=== PATIENT | male | born 1955 | race Caucasian/White ===

== ENCOUNTER → 2020-06-26 11:57 | Outpatient (BNVA) | payer OTHER, SELFPAY | PROVIDERS: Family Provider Family Medicine; Visit Provider Internal Medicine | DX: Z11.59 Encounter for screening for other viral diseases (principal) | CPT/HCPCS: 87635 ==

== ENCOUNTER 2020-08-02 20:00 | Outpatient (CLI) | payer OTHER, SELFPAY | END 2020-08-02 20:01 | disposition home or self-care (01) | LOC: SLEEP 08-03 09:48 | PROVIDERS: Family Provider Family Medicine; PCP Family Medicine; Visit Provider Internal Medicine Cardiovascular Disease | DX: G47.33 Obstructive sleep apnea (adult) (pediatric) (principal) | CPT/HCPCS: 95811 ==

== ENCOUNTER 2020-09-27 06:57 | Outpatient (CLI) | payer OTHER, SELFPAY ==
[2020-09-27 07:05] VITALS: BMI 29.1
--- NOTE | 2020-09-27 07:05 | NMCV_ITS ---
NM marta perf SPECT r/s* [id number] John Fleming Age: 65 Gender: M : 1955 Exam Date: 09/27/2020 07:53 Ordering Phys: Black Durham MD ([email or web address]) Technologist: JUAN PABLO Esposito Exam Location: [facility] Indications: Chest pain STRESS TEST Please see separate stress test report in [facility] for full findings IMAGE PROTOCOL Rest/Stress 1 Exercise Day Radiopharmaceutical Dose (mCi) Administration Site Administered by Rest: Tc-99m 10.9 IV JUAN PABLO Esposito Sestamibi Stress:Tc-99m 32.7 IV JUAN PABLO Knapp Sestamimike Rest: 27-Sep-2020 60 Discovery 630 Stress: 27-Sep-2020 15 Discovery 630 Radiopharmaceutical was injected at 87 % maximum heart rate. Images obtained in supine and prone position. SPECT RESULTS Technical Quality: Good Raw Data Analysis: Normal Image Corrections: No attenuation or motion correction applied Summed Stress Score: 0 Summed Rest Score: 0 Summed Difference Score: 0 PERFUSION FINDINGS SPECT images demonstrate homogeneous tracer distribution throughout the myocardium. FUNCTIONAL RESULTS (calculated via Gated SPECT) Stress Image LV EF (%): 66 Stress EDV (mL):128 TID: 0.84 Stress ESV (mL):44 Rest Image LV EF (%): 66 FUNCTIONAL FINDINGS: There is normal left ventricular systolic function. IMPRESSIONS Myocardial perfusion imaging is normal. EKG segment will be documented separately. Black Durham MD (Electronically Signed) Final Date: 27 September 2020 16:39 S
--- NOTE | 2020-09-27 07:05 | ECG_ITS ---
[facility] Test Date: 2020-09-27 Pat Name: John Fleming Department: Room: Gender: Male Senior Brand Manager: : 1955 Requested By: Yuliana Durham Order Number: [id number] Verónica MD: YULIANA DURHAM Interpretive Statements NAME OF STUDY: EXERCISE SESTAMIBI STRESS TEST INDICATION: Chest Pain EXERCISE DATA: The patient was exercised by Gregory protocol. Baseline heart rate was 48 beats per minute. Baseline blood pressure was 131/83 millimeters of mercury. Target heart rate was 156 beats per minute. Maximum heart rate achieved was 144, which was 92 % of the target heart rate. Maximum blood pressure was 218/94 millimeters of mercury. Total exercise time was 7 minutes 30 seconds. Maximum METs achieved was 10.2, maximum VO2 was 35.7. The reason for ending the test was maximum effort achieved. The patient complained of shortness of breath during the stress test, which then resolved at the end of the test. ELECTROCARDIOGRAM: BASELINE: Sinus bradycardia, normal axis, no significant ST-T changes at the baseline noted. EXERCISE: At the peak exercise level, no significant ST-T changes suggestive of ischemia noted. RECOVERY: During the recovery period, heart rate dropped appropriately. No significant ST-T changes in the recovery suggestive of ischemia noted. CONCLUSION: 1. Exercise capacity good. 2. Heart rate response was appropriate. 3. Blood pressure response was hypertensive. 4. Symptoms not suggestive of ischemia. 5. Electrocardiogram portion of the stress test was not suggestive of ischemia. 6. Nuclear scan will be documented separately. Electronically Signed On 10-09-2020 18:06:55 COMMODITY LEAD by YULIANA DURHAM [id number]
--- NOTE | 2020-09-27 08:41 | SUR.PREOP ---
Patient reports no pain or discomfort prior to the start of the procedure.
[2020-09-27 09:10] VITALS: BP 134/78; PULSE 72
== END 2020-09-27 06:58 | disposition home or self-care (01) ==
LOC: CDL 06:58
PROVIDERS: PCP Family Medicine; Visit Provider Internal Medicine Cardiovascular Disease
DX: R07.9 Chest pain, unspecified (principal)
CPT/HCPCS: 78452; 93017; A9500

== ENCOUNTER → 2021-04-11 08:17 | Outpatient (BNVA) | payer OTHER, SELFPAY | PROVIDERS: PCP Family Medicine; Visit Provider Internal Medicine | DX: Z12.11 Encounter for screening for malignant neoplasm of colon (principal); Z20.822 Contact with and (suspected) exposure to COVID-19 | CPT/HCPCS: 87635 ==

== ENCOUNTER 2021-04-15 09:27 | Day surgery (SDC) | payer OTHER, SELFPAY ==
[2021-04-11 14:18] VITALS: BMI 28.5
--- NOTE | 2021-04-15 09:13 | P.HP_ITS ---
Same Day Surgery H&P Indication for Procedure/HPI DATE OF PROCEDURE: April 15, 2021 CHIEF COMPLAINT/INDICATIONFOR SURGICAL PROCEDURE: Screening PREOP DIAGNOSIS: Screening PLANNED PROCEDRUE: Operation Date: 04/15/21 11:00 Proposed Procedures p Colonoscopy G0121 Z12.11(Not Applicable) - Harinder Bragg MD Medications/Allergies* Home Medications Medication Instructions Recorded Confirmed Type esomeprazole magnesium 40 mg 40 mg PO DAILY cap 07/12/20 04/11/21 History capsule,delayed release lisinopril 20 mg PO DAILY 04/11/21 04/11/21 History Allergies/Adverse Reactions Allergy/AdvReac Type Severity Reaction Status Date / Time codeine AdvReac ADR-Vomitin Verified 01/17/21 13:06 g Pertinent History/Comorbid Conditions* Medical History (Updated 07/15/20 @ 15:43 by Black Durham MD) Bradycardia Essential hypertension Fatigue Hyperlipidemia LDL goal <100 LUCY (obstructive sleep apnea) Social History Smoking and tobacco status: never smoked Alcohol intake: current Alcohol intake frequency: other Pertinent Exam Findings alert, oriented x 3, clear to auscultation bilaterally, regular rate & rhythm, operative site marked and procedure specific exam findings Recommendations Surgery/Procedure today Coding Level of Care Code Acute Automation Technician for Jesús Nicolas
--- NOTE | 2021-04-15 09:47 | ANES.PREANE2 ---
Pre-Anesthetic Assessment Pre-Anesthetic Assessment: Height/Weight: Height 1.88 m Weight 100.698 kg Preop Diagnosis: Screening Proposed Procedure: Operation Date: 04/15/21 11:00 Proposed Procedures p Colonoscopy G0121 Z12.11(Not Applicable) - Harinder Bragg MD Was Beta Samantha taken within 24 hours: N/A Was Clonidine taken within 24 hours: N/A Social: Social History: No alcohol and No tobacco Exam: Pre-Anes Outpt Exam: alert, oriented x 3, clear to auscultation bilaterally and regular rate & rhythm Airway: Submandibular: WNL Cervical ROM: WNL MP: 2 Dentition: Full Pulmonary: Pulmonary: Sleep apnea CV/HEM: CV/HEM: HTN GI: GI: GERD Neuropsych: Neuropsych: Anxiety Anesthetic Plan: ASA status: 3 Anesthesia: MAC Risk of > 500 ml blood loss (7ml/kg in children): No PFSH Anesthesia PFSH: Medical History Bradycardia Essential hypertension Fatigue Hyperlipidemia LDL goal <100 LUCY (obstructive sleep apnea) Social History (Updated 01/17/21 @ 13:07 by Flor Whitten RN) Smoking and tobacco status: never smoked Alcohol intake: current Alcohol intake frequency: other Data Anesthesia Cardiac Studies: No Data to Display
[2021-04-15 11:08] VITALS: BP 135/90; PULSE 47; RESP 18; TEMP 36.4; O2SAT 99
[2021-04-15] MEDS: sodium chloride 0.9% 1,000 ML 30 ML IV ×2 (11:21→12:31)
[2021-04-15 12:38] VITALS: BP 110/64; PULSE 54; RESP 12; TEMP 36.4; O2SAT 98
[2021-04-15 12:48] VITALS: BP 109/64; PULSE 45; RESP 16; O2SAT 99
--- NOTE | 2021-04-15 13:15 | ANE.PACU2 ---
Inpatient post-anesthesia follow up: Airway intact: Yes Vital signs: Temperature 97.6 F Pulse Rate 45 Respiratory Rate 16 Blood Pressure 109/64 Pulse Oximetry 99 Oxygen Delivery Me thod Room Air Oxygen Flow Rate Fraction of Inspir ed Oxygen Hydration adequate: Yes Nausea and vomiting: No Pain level: 1 Mental status: Baseline
== END 2021-04-15 13:00 | disposition home or self-care (01) ==
PROVIDERS: PCP Family Medicine; Visit Provider Internal Medicine
PROC: 0DJD8ZZ Inspection of Lower Intestinal Tract, Via Natural or Artificial Opening Endoscopic (ICD-10-PCS; CPT 45378; principal; 2021-04-15 11:00)
DX: Z12.11 Encounter for screening for malignant neoplasm of colon (principal); I10 Essential (primary) hypertension; E78.5 Hyperlipidemia, unspecified; G47.33 Obstructive sleep apnea (adult) (pediatric); K21.9 Gastro-esophageal reflux disease without esophagitis
CPT/HCPCS: 45378; 96360; J2704; J7030

== ENCOUNTER → 2021-06-25 07:55 | Outpatient (BNVA) | payer OTHER, SELFPAY | PROVIDERS: PCP Family Medicine; Visit Provider Specialist | DX: F32.9 Major depressive disorder, single episode, unspecified (principal); G25.0 Essential tremor | CPT/HCPCS: 99214 ==

== ENCOUNTER → 2021-09-24 08:06 | Outpatient (BNVA) | payer OTHER, SELFPAY | PROVIDERS: PCP Family Medicine; Visit Provider Specialist | DX: G25.0 Essential tremor (principal); F32.9 Major depressive disorder, single episode, unspecified | CPT/HCPCS: 99212; 99213 ==

== ENCOUNTER → 2022-01-10 10:39 | Outpatient (BNVA) | payer OTHER, SELFPAY | PROVIDERS: PCP Family Medicine; Visit Provider Family Medicine | DX: Z20.822 Contact with and (suspected) exposure to COVID-19 (principal) | CPT/HCPCS: 87635 ==

== ENCOUNTER → 2022-02-12 10:33 | Outpatient (BNVA) | payer OTHER, SELFPAY | PROVIDERS: PCP Family Medicine; Visit Provider Internal Medicine | DX: Z20.822 Contact with and (suspected) exposure to COVID-19 (principal); Z01.818 Encounter for other preprocedural examination; R10.13 Epigastric pain | CPT/HCPCS: 87635 ==

== ENCOUNTER 2022-02-17 06:11 | Day surgery (SDC) | payer OTHER, SELFPAY ==
[2022-02-14 10:05] VITALS: BMI 27.3
[2022-02-17 06:27] VITALS: BP 132/80; PULSE 50; RESP 16; TEMP 36.1; O2SAT 98
--- NOTE | 2022-02-17 06:34 | P.ANESASSM_ITS ---
Pre-Anesthetic Assessment Height/Weight: Height 1.88 m Weight 96.615 kg Temp Pulse Resp BP Pulse Ox 97 F L 50 L 16 132/80 98 02/17/22 06:27 02/17/22 06:27 02/17/22 06:27 02/17/22 06:27 02/17/22 06:27 Preop Diagnosis: Epigastric pain Operation Date: 02/17/22 07:00 Proposed Procedures p EGD 55803/r10.13(Not Applicable) - Harinder Bragg MD Familial anesthetic complications: None Was Beta Samantha taken within 24 hours: N/A Was Clonidine taken within 24 hours: N/A Last intake: Intake Last Liquid Date 02/17/22 Last Liquid Time 03:00 Last Solid Date 02/16/22 Last Solid Time 20:00 Social No alcohol and No tobacco Exam alert, oriented x 3, clear to auscultation bilaterally and regular rate & rhythm Airway Mallampati: Class I Dentition: false Pulmonary Sleep Apnea CV/HEM Arrythmia and Hypertension None reported Hepatic None reported GI Gastroesophageal Reflux Disease and Hiatal Hernia (small) well controlled GERD Metabolic Hyperlipidemia [facility] Osteoarthritis/DJD Neuropsych None reported Anesthetic Plan ASA status: 3 Anesthesia: MAC Medications/Allergies Home Medications Medication Instructions Recorded Confirmed Last Taken Type esomeprazole magnesium 40 mg 40 mg PO DAILY cap 07/12/20 02/17/22 02/16/22 History capsule,delayed release lisinopril 20 mg tablet 20 mg PO DAILY 04/11/21 02/17/22 02/16/22 History citalopram 20 mg tablet 20 mg PO DAILY #30 tab 09/24/21 02/17/22 02/16/22 Rx trazodone 100 mg tablet 100 mg PO DAILY #30 tab 09/24/21 02/17/22 02/16/22 Rx alprazolam 0.25 mg tablet (Xanax) 0.25 mg PO .[id number] PRN #120 tab 01/28/22 02/17/22 02/16/22 Rx atorvastatin 10 mg tablet 10 mg PO DAILY 02/12/22 02/17/22 02/16/22 History Allergies Allergy/AdvReac Type Severity Reaction Status Date / Time codeine AdvReac ADR-Vomitin Verified 02/12/22 09:49 g [facility] Anesthesia Medical History Bradycardia Essential hypertension Fatigue Hyperlipidemia LDL goal <100 LUCY (obstructive sleep apnea) Social History Smoking and tobacco status: never smoked Alcohol intake: current Alcohol intake frequency: other Data Anesthesia Cardiac Studies: Sestamibi Stress Test (Cardiology) 09/27/20
[2022-02-17] MEDS: sodium chloride 0.9% 1,000 ML 30 ML IV (06:36)
--- NOTE | 2022-02-17 07:32 | W.PM.OPSFHP ---
Same Day Surgery H&P Indication for Procedure/HPI DATE OF PROCEDURE: February 17, 2022 CHIEF COMPLAINT/INDICATIONFOR SURGICAL PROCEDURE: Epigastric pain PREOP DIAGNOSIS: Epigastric pain PLANNED PROCEDURE: Operation Date: 02/17/22 07:00 Proposed Procedures p EGD 17119/r10.13(Not Applicable) - Harinder Bragg MD Medications/Allergies* Home Medications Medication Instructions Recorded Confirmed Type esomeprazole magnesium 40 mg 40 mg PO DAILY cap 07/12/20 02/17/22 History capsule,delayed release lisinopril 20 mg tablet 20 mg PO DAILY 04/11/21 02/17/22 History atorvastatin 10 mg tablet 10 mg PO DAILY 02/12/22 02/17/22 History Allergies/Adverse Reactions Allergy/AdvReac Type Severity Reaction Status Date / Time codeine AdvReac ADR-Vomitin Verified 02/12/22 09:49 g Current Medications: Generic Name Dose Route Start Last Admin Trade Name Freq PRN Reason Stop Dose Admin Sodium Chloride 1,000 mls @ 30 mls/hr 02/17/22 06:15 02/17/22 06:36 Sodium Chloride 0.9% IV 30 mls/hr .Q24H DON Administration Pertinent History/Comorbid Conditions* Medical History (Updated 02/12/22 @ 10:26 by Harinder Bragg MD) Bradycardia Essential hypertension Fatigue Hyperlipidemia LDL goal <100 LUCY (obstructive sleep apnea) Social History Smoking and tobacco status: never smoked Alcohol intake: current Alcohol intake frequency: other Pertinent Exam Findings alert, oriented x 3, clear to auscultation bilaterally, regular rate & rhythm, operative site marked and procedure specific exam findings Recommendations Surgery/Procedure today Coding Level of Care Code Acute Senior Java Programmer Analyst for Jesús Nicolas
[2022-02-17 07:41] VITALS: BP 114/71; PULSE 48; RESP 16; TEMP 36.6; O2SAT 95
[2022-02-17 07:49] VITALS: BP 120/84; PULSE 50; RESP 18; TEMP 36.5; O2SAT 97
--- NOTE | 2022-02-17 09:25 | CT_ITS ---
WS: [id number] CT ABDOMEN AND PELVIS WITH CONTRAST HISTORY: Epigastric pain with a bland egd. TECHNIQUE: Imaging performed of the abdomen and pelvis with IV contrast. Single phase imaging of the abdomen. Coronal and sagittal reformats are submitted. All CT scans at [facility] use at [address] one of these dose optimization techniques: automated exposure control; mA and/or kV adjustment per patient size (includes targeted exams where dose is matched to clinical indication); or iterative re construction. IV CONTRAST: Omnipaque 300; 95 mL IV. Oral contrast: Yes. DLP: 1222.83 mGy.cm COMPARISON: None available. Lower thorax: Mild dependent changes and groundglass attenuation the lung bases. Heart is normal size . Small hiatal hernia. Liver/biliary system: Normal size with no intrahepatic dilatation. Gallbladder: Status post cholecystectomy. Pancreas: Normal size pancreas and pancreatic duct. No adjacent inflammation. Spleen: Normal size spleen. No mass or infarct. Adrenal glands: Normal. Right kidney: Normal. Left kidney: Normal. Aorta: Normal. Lymphadenopathy: None. Free fluid: None. GI tract: Minimal distention of the stomach. No mucosal thickening or edema. No small bowel obstructi on. There are a few diverticula in the sigmoid colon without acute diverticulitis. Very small caliber are normal. Abdominal wall: Unremarkable abdominal wall. No hernia. Pelvis: Well-distended urinary bladder. Mildly enlarged heterogeneous prostate gland with central beto cifications. Bones: Mild lumbar spondylitic changes. No destructive bone lesion. Mild bilateral hip joint arthriti s. CT/CT abdomen pelvis w con* [id number] IMPRESSION: 1. No acute abdominal or pelvic abnormalities. 2. Mild sigmoid diverticulosis without acute diverticulitis. 3. Prior cholecystectomy. 4. Very small hiatal hernia. 5. Mildly heterogeneous prostate gland.
[2022-02-17 09:30] LABS: Alanine Aminotransferase 16 U/L (0-41); Albumin Level 4.7 g/dL (3.5-5.2); Alkaline Phosphatase 63 IU/L (40-130); Anion Gap 11.3 (5-19); Aspartate Amino Transferase 13 U/L (0-40); Blood Urea Nitrogen 11 mg/dL (8-23); Carbon Dioxide 28 mmol/L (22-29); Chloride 97 mmol/L (98-107); Glomerular Filtration Rate 135.2 mL/min (90-130); Glucose 146 mg/dL (65-115); Osmolality Calculated 276 mOsm/kg (285-295); Potassium 4.3 mmol/L (3.5-5.1); Sodium 132 mmol/L (136-145); Total Bilirubin 1.7 mg/dL (0.15-1.2); Total Protein 6.7 g/dL (6.6-8.7)
[2022-02-17] MEDS: iohexol 300 mg/mL 50 mL Btl 20 ML PO (09:37)
[2022-02-17] MEDS: iohexol 300 mg/mL 100 mL Btl IV (10:51)
--- NOTE | 2022-02-17 14:52 | ANE.PACU2 ---
Inpatient post-anesthesia follow up: Airway intact: Yes Vital signs: Temperature 97.7 F Pulse Rate 50 Respiratory Rate 18 Blood Pressure 120/84 Pulse Oximetry 97 Oxygen Delivery Me thod Room Air Oxygen Flow Rate Fraction of Inspir ed Oxygen Hydration adequate: Yes Nausea and vomiting: No Pain level: 1 Mental status: Baseline
== END 2022-02-17 10:53 | disposition home or self-care (01) ==
PROVIDERS: PCP Family Medicine; Visit Provider Internal Medicine
PROC: 0DJ08ZZ Inspection of Upper Intestinal Tract, Via Natural or Artificial Opening Endoscopic (ICD-10-PCS; CPT 43235; principal; 2022-02-17 07:00)
DX: R10.13 Epigastric pain (principal); I10 Essential (primary) hypertension; E78.5 Hyperlipidemia, unspecified; G47.33 Obstructive sleep apnea (adult) (pediatric)
CPT/HCPCS: 36415; 43235; 74177; 80053; J2704; J3490; J7030; Q9967

== ENCOUNTER → 2022-03-20 10:38 | Outpatient (BNVA) | payer OTHER, SELFPAY | PROVIDERS: PCP Family Medicine; Visit Provider Family Medicine | DX: R10.13 Epigastric pain (principal); R53.83 Other fatigue; R19.7 Diarrhea, unspecified; M25.50 Pain in unspecified joint | CPT/HCPCS: 80053; 83690; 84443; 85025; 86200; 86431 ==

== ENCOUNTER → 2022-03-27 15:51 | Outpatient (BNVA) | payer OTHER, SELFPAY | PROVIDERS: PCP Family Medicine; Visit Provider Family Medicine | DX: E80.6 Other disorders of bilirubin metabolism (principal) | CPT/HCPCS: 82247; 82248 ==

== ENCOUNTER → 2022-10-14 10:47 | Outpatient (BNVA) | payer MEDICARE, SELFPAY | PROVIDERS: PCP Family Medicine; Visit Provider Family Medicine | DX: I10 Essential (primary) hypertension (principal); E80.6 Other disorders of bilirubin metabolism; E78.5 Hyperlipidemia, unspecified; R73.9 Hyperglycemia, unspecified | CPT/HCPCS: 80053; 80061; 83036 ==

== ENCOUNTER 2022-11-29 16:03 | Emergency (ER) | payer MEDICARE, SELFPAY ==
[2022-11-29 16:26] VITALS: BP 145/85; PULSE 87; RESP 18; TEMP 38.1; O2SAT 94
--- NOTE | 2022-11-29 16:36 | XRR_ITS ---
PROCEDURE INFORMATION: Exam: XR Left Foot Exam date and time: 11/29/2022 4:42 PM Age: 67 years old Clinical indication: Patient HX: Pain/swelling left foot, symptom onset two days ago. Red area on bottom of foot. TECHNIQUE: Imaging protocol: Radiologic exam of the Left foot. Views: 3 or more views. COMPARISON: No relevant prior studies available. FINDINGS: Bones/joints: Normal. Soft tissues: Normal. XR/XR foot LT min 3V* [id number] IMPRESSION: No acute findings.
--- NOTE | 2022-11-29 16:39 | W.ED.GENADLT ---
HPI - General Adult General: Chief complaint: General Medical Stated complaint: spider bite, not getting bad, low grade fever. Time Seen by Provider: 11/29/22 16:32 Source: patient Mode of arrival: ambulatory Limitations: no limitations History of Present Illness: 67-year-old male states he went deer hunting on felt like he got something in his left foot he states he been having pain in that left foot mostly erythema he was seen yesterday and started on Bactrim along with pain meds he states today he has had a fever he is also now having pain in his right shoulder his right wrist still having some pain in his left foot as well. Associated symptoms: Deny chest pain, dyspnea, headache(s), nausea, rash or vomiting Review of Systems Const: Reports: fever(s) and chills Eyes: Denies: blurry vision or eye discomfort ENMT: Denies: throat pain or dental pain Card: Denies: chest pain Resp: Denies: dyspnea GI: Denies: abdominal pain, nausea, vomiting or diarrhea : Denies: dysuria Musc: Reports: joint pain Skin/Breast: Denies: rash Neuro: Denies: headache(s) Psych: Denies: depression Erick/Lymph: Denies: easy bruising All/Imm: Denies: urticaria PFSH ED PFSH: Medical History Bradycardia Essential hypertension Fatigue Hyperlipidemia LDL goal <100 LUCY (obstructive sleep apnea) Social History Smoking and tobacco status: never smoked Alcohol intake: current Alcohol intake frequency: other Physical Exam Const: COMMON NORMALS: no acute distress, patient oriented x3 and healthy appearing HENMT: COMMON NORMALS: normocephalic and atraumatic HEAD & SCALP: normocephalic and atraumatic Eye: COMMON NORMALS: Equal, round and reactive pupils present and EOMs intact bilaterally PUPIL: Yes Equal, round and reactive pupils present Neck/C-Spine: COMMON NORMALS: full ROM and supple Chest: COMMONS NORMALS: normal inspection of the chest and normal palpation of entire chest wall Resp: COMMON NORMALS: normal respiratory effort, No retractions, No use of accessory muscles and clear to auscultation bilaterally AUSCULTATION: clear to auscultation bilaterally Cardio: COMMON NORMALS: regular rate, regular rhythm and No murmurs present (Cardio) RATE: regular rate RHYTHM: regular rhythm GI: COMMON NORMALS: Normal to inspection, nondistended, normoactive bowel sounds present, Soft to palpation, non-tender and no masses PALPATION: Yes Soft to palpation Extremity: NARRATIVE EXTREMITY EXAM: Pain in right wrist and right shoulder he is got some pain in his left foot minimal erythema to the left foot Neuro: COMMON NORMALS: patient oriented x3, moves all extremities and no focal motor deficits Psych: COMMON NORMALS: mental status grossly normal, Normal thought process present and cooperative THOUGHT PROCESS: Normal thought process present Skin: COMMON NORMALS: no rashes or lesions noted and no wounds GENERAL SKIN EXAM: no rashes or lesions noted Course Vital Signs: Vital signs: Vital Signs Temperature 100.5 F H 11/29/22 16:26 Pulse Rate 87 11/29/22 16:26 Respiratory Rate 18 11/29/22 16:26 Blood Pressure 145/85 11/29/22 16:26 Pulse Oximetry 94 11/29/22 16:26 [facility] - General Adult Medical Decision Making Patient presents here with originally with cellulitis his foot it looks well here his white count here is normal he does have joint pain in his shoulders and wrists we will have him follow-up with health service worker as he is having multiple joint pains he has no signs of sepsis or septic joint Lab Data 11/29/22 16:51 11/29/22 16:51 Radiology Impressions Foot X-Ray 11/29/22 16:36 IMPRESSION: No acute findings. Laboratory Results WBC 12.7 10^3/uL (4.0-10.0) H 11/29/22 16:51 RBC 5.22 10^6/uL (4.1-5.3) 11/29/22 16:51 Hgb 15.2 g/dL (11.7-16.6) 11/29/22 16:51 Hct 46.2 % (42.0-52.0) 11/29/22 16:51 MCV 88.5 fl (80-94) 11/29/22 16:51 MCH 29.1 pg (28.0-34.0) 11/29/22 16:51 MCHC 32.9 g/dL (30.0-36.0) 11/29/22 16:51 RDW 12.2 % (12.1-15.1) 11/29/22 16:51 Plt Count 179 10^3/cmm (130-400) 11/29/22 16:51 MPV 10.4 fL (7.4-10.4) 11/29/22 16:51 Neut % (Auto) 80.4 % 11/29/22 16:51 Lymph % (Auto) 9.4 % 11/29/22 16:51 [place] % (Auto) 9.6 % 11/29/22 16:51 Eos % (Auto) 0.0 % 11/29/22 16:51 Baso % (Auto) 0.2 % 11/29/22 16:51 Neut # (Auto) 10.18 10^3/uL (1.8-7.7) H 11/29/22 16:51 Lymph # (Auto) 1.2 10^3/uL (0.8-4.8) 11/29/22 16:51 [place] # (Auto) 1.2 10^3/uL (0.2-0.9) H 11/29/22 16:51 Eos # (Auto) 0.0 10^3/uL (0.0-0.8) 11/29/22 16:51 Baso # (Auto) 0.0 10^3/uL (0.0-0.1) 11/29/22 16:51 Nucleated RBC % (auto) 0 % 11/29/22 16:51 Nucleated RBCs # 0.0 /100WBC 11/29/22 16:51 ESR 38 mm/hr (0-10) H 11/29/22 16:51 Sodium 132 mmol/L (136-145) L 11/29/22 16:51 Potassium 4.4 mmol/L (3.5-5.1) 11/29/22 16:51 Chloride 99 mmol/L (98-107) 11/29/22 16:51 Carbon Dioxide 23 mmol/L (22-29) 11/29/22 16:51 Anion Gap 14.4 (5-19) 11/29/22 16:51 BUN 11 mg/dL (8-23) 11/29/22 16:51 Creatinine 0.6 mg/dL (0.7-1.2) L 11/29/22 16:51 GFR Calculation 134.8 mL/min (90-130) H 11/29/22 16:51 Glucose 187 mg/dL (65-115) H 11/29/22 16:51 Calculated Osmolality 278 mOsm/kg (285-295) L 11/29/22 16:51 Calcium 9.1 mg/dL (8.5-10.5) 11/29/22 16:51 Total Bilirubin 1.4 mg/dL (0.15-1.2) H 11/29/22 16:51 AST 19 U/L (0-40) 11/29/22 16:51 ALT 20 U/L (0-41) 11/29/22 16:51 Alkaline Phosphatase 85 U/L (40-130) 11/29/22 16:51 C-Reactive Protein 83.7 mg/L (0.0-4.9) H 11/29/22 16:51 Total Protein 7.8 g/dL (6.6-8.7) 11/29/22 16:51 Albumin 4.5 g/dL (3.5-5.2) 11/29/22 16:51 Globulin 3.3 g/dL (1.3-4.6) 11/29/22 16:51 Discharge Plan Discharge Patient Disposition: Home Clinical Impression: Arthralgia Condition: Stable Prescriptions: New Percocet 7.5-325 mg tablet 1 tab PO Q6H PRN (Reason: pain) Qty: 14 0RF No Action esomeprazole magnesium 40 mg capsule,delayed release(DR/EC) 40 mg PO DAILY citalopram 20 mg tablet See Rx Instructions .ROUTE .COMPLEX Qty: 90 3RF Dose Instruction: TAKE 1 TABLET BY MOUTH EVERY DAY Rx Instructions: TAKE 1 TABLET BY MOUTH EVERY DAY alprazolam [Xanax] 0.25 mg tablet 0.25 mg PO .[id number] PRN (Reason: anxiety) Qty: 120 3RF hydrocodone-acetaminophen 5-325 mg tablet 1 tab PO Q4H PRN (Reason: pain) 4 Days Qty: 20 0RF sulfamethoxazole-trimethoprim [Bactrim DS] 800-160 mg tablet 1 tab PO BID 10 Days Qty: 20 0RF prednisone 20 mg tablet 40 mg PO DAILY 5 Days Qty: 10 0RF trazodone 100 mg tablet See Rx Instructions .ROUTE .COMPLEX Qty: 30 4RF Dose Instruction: TAKE ONE TABLET BY MOUTH EVERY DAY Rx Instructions: TAKE ONE TABLET BY MOUTH EVERY DAY lisinopril 20 mg tablet 20 mg PO DAILY Discharge Orders: Discharge ED (Routine); Ordered 11/29/22 Ordered By: Daljit Goodman Referrals: Deni Ramirez, [Primary Care Provider] - 1-3 days Discharge Diet: Advance as tolerated Discharge Activity: Resume usual activity Patient Instructions: Arthralgia (ED), Opioid Safety, Pain Management Coding Level of Care Code ED Performing Artist for Jesús Fwd Exam Comprehensive
[2022-11-29 17:08] LABS: Basophils % 0.2 %; Hematocrit 46.2 % (42.0-52.0); Hemoglobin 15.2 g/dL (11.7-16.6); Lymphocytes # 1.2 10^3/uL (0.8-4.8); Lymphocytes % 9.4 %; Mean Corpuscular HGB Conc 32.9 g/dL (30.0-36.0); Mean Corpuscular Hemoglobin 29.1 pg (28.0-34.0); Mean Corpuscular Volume 88.5 fl (80-94); Mean Platelet Volume 10.4 fL (7.4-10.4); Monocytes # 1.2 10^3/uL (0.2-0.9); Monocytes % 9.6 %; Neutrophils # 10.18 10^3/uL (1.8-7.7); Neutrophils % 80.4 %; Nucleated Red Blood Cells % 0 %; Platelet Count 179 10^3/cmm (130-400); Red Blood Count 5.22 10^6/uL (4.1-5.3); Red Cell Distribution Width 12.2 % (12.1-15.1); White Blood Count 12.7 10^3/uL (4.0-10.0)
[2022-11-29] MEDS: HYDROmorphone 1 mg/mL INJ 1 mL 0.5 MG IVP (17:14)
[2022-11-29] MEDS: acetaminophen 325 mg Tablet 650 MG PO (17:16)
[2022-11-29] MEDS: sodium chloride 0.9% 1,000 ML 999 ML IV (17:17)
[2022-11-29 17:18] LABS: Erythrocyte Sedimentation Rate 38 mm/hr (0-10)
[2022-11-29 17:41] LABS: Alanine Aminotransferase 20 U/L (0-41); Albumin Level 4.5 g/dL (3.5-5.2); Alkaline Phosphatase 85 U/L (40-130); Anion Gap 14.4 (5-19); Aspartate Amino Transferase 19 U/L (0-40); Blood Urea Nitrogen 11 mg/dL (8-23); C Reactive Protein 83.7 mg/L (0.0-4.9); Calcium 9.1 mg/dL (8.5-10.5); Carbon Dioxide 23 mmol/L (22-29); Chloride 99 mmol/L (98-107); Globulin 3.3 g/dL (1.3-4.6); Glomerular Filtration Rate 134.8 mL/min (90-130); Glucose 187 mg/dL (65-115); Osmolality Calculated 278 mOsm/kg (285-295); Potassium 4.4 mmol/L (3.5-5.1); Sodium 132 mmol/L (136-145); Total Bilirubin 1.4 mg/dL (0.15-1.2); Total Protein 7.8 g/dL (6.6-8.7)
== END 2022-11-29 18:28 | disposition home or self-care (01) ==
PROVIDERS: Emergency Provider Emergency Medicine; PCP Family Medicine
DX: M25.512 Pain in left shoulder (principal); M25.511 Pain in right shoulder; M25.532 Pain in left wrist; M25.531 Pain in right wrist; I10 Essential (primary) hypertension; E78.5 Hyperlipidemia, unspecified
CPT/HCPCS: 36415; 73630; 80053; 85025; 85651; 86140; 87040; 96374; 96375; 99284; J1170; J2930; J7030

== ENCOUNTER 2022-12-01 17:30 | Observation (INO) | payer MEDICARE, SELFPAY ==
[2022-12-01] VITALS (7 sets, daily range): BP systolic 128–156; BP diastolic 71–99; PULSE 76–90; RESP 14–18; TEMP 37.4–37.8; O2SAT 95–98
[2022-12-01 19:00] LABS: Basophils % 0.2 %; Eosinophils % 0.1 %; Hemoglobin 14.9 g/dL (11.7-16.6); Lymphocytes # 1.7 10^3/uL (0.8-4.8); Lymphocytes % 13.8 %; Mean Corpuscular HGB Conc 33.1 g/dL (30.0-36.0); Mean Corpuscular Hemoglobin 29.3 pg (28.0-34.0); Mean Corpuscular Volume 88.6 fl (80-94); Mean Platelet Volume 10.2 fL (7.4-10.4); Monocytes # 1.3 10^3/uL (0.2-0.9); Monocytes % 10.7 %; Neutrophils # 9.07 10^3/uL (1.8-7.7); Nucleated Red Blood Cells % 0 %; Platelet Count 229 10^3/cmm (130-400); Red Blood Count 5.08 10^6/uL (4.1-5.3); Red Cell Distribution Width 12.4 % (12.1-15.1); White Blood Count 12.1 10^3/uL (4.0-10.0)
[2022-12-01 19:07] LABS: Erythrocyte Sedimentation Rate 38 mm/hr (0-10)
[2022-12-01 19:23] LABS: Alanine Aminotransferase 49 U/L (0-41); Albumin Level 4.1 g/dL (3.5-5.2); Alkaline Phosphatase 90 U/L (40-130); Anion Gap 17.2 (5-19); Aspartate Amino Transferase 51 U/L (0-40); Blood Urea Nitrogen 16 mg/dL (8-23); C Reactive Protein 100.7 mg/L (0.0-4.9); Calcium 9.6 mg/dL (8.5-10.5); Carbon Dioxide 24 mmol/L (22-29); Chloride 99 mmol/L (98-107); Globulin 3.5 g/dL (1.3-4.6); Glomerular Filtration Rate 112.8 mL/min (90-130); Glucose 113 mg/dL (65-115); Osmolality Calculated 284 mOsm/kg (285-295); Potassium 4.2 mmol/L (3.5-5.1); Sodium 136 mmol/L (136-145); Total Bilirubin 1.3 mg/dL (0.15-1.2); Total Protein 7.6 g/dL (6.6-8.7)
[2022-12-01 19:24] LABS: Lactate (Lactic Acid level) 1.5 mmol/L (0.5-2.2)
--- NOTE | 2022-12-01 19:24 | ED_ITS ---
HPI - General Adult General: Chief complaint: General Medical Stated complaint: joint pain all over Time Seen by Provider: 12/01/22 18:06 Source: patient Mode of arrival: ambulatory Limitations: no limitations History of Present Illness: 67-year-old male has been seen multiple times in the last week for joint pains. Originally started out with a injury to his left foot he has had fevers but he has had severe joint pain since then he has been on steroids along with antibiotics he states that today has had pain in his wrists and knees it were a 10 out of 10 he seen by his PCP and sent here. Associated symptoms: Deny chest pain, dyspnea, headache(s), nausea, rash or vomiting Review of Systems Const: Reports: fever(s) and body aches Eyes: Denies: blurry vision or eye discomfort ENMT: Denies: throat pain or dental pain Card: Denies: chest pain Resp: Denies: dyspnea GI: Denies: abdominal pain, nausea, vomiting or diarrhea : Denies: dysuria Musc: Reports: extremity pain Skin/Breast: Denies: rash Neuro: Denies: headache(s) Psych: Denies: depression Erick/Lymph: Denies: easy bruising All/Imm: Denies: urticaria PFSH ED PFSH: Medical History Bradycardia Essential hypertension Fatigue Hyperlipidemia LDL goal <100 LUCY (obstructive sleep apnea) Social History Smoking and tobacco status: never smoked Alcohol intake: current Alcohol intake frequency: other Physical Exam Const: COMMON NORMALS: no acute distress, patient oriented x3 and healthy appearing HENMT: COMMON NORMALS: normocephalic and atraumatic HEAD & SCALP: normocep halic and atraumatic Eye: COMMON NORMALS: Equal, round and reactive pupils present and EOMs intact bilaterally PUPIL: Yes Equal, round and reactive pupils present Neck/C-Spine: COMMON NORMALS: full ROM and supple Chest: COMMONS NORMALS: normal inspection of the chest and normal palpation of entire chest wall Resp: COMMON NORMALS: normal respiratory effort, No retractions, No use of accessory muscles and clear to auscultation bilaterally AUSCULTATION: clear to auscultation bilaterally Cardio: COMMON NORMALS: regular rate, regular rhythm and No murmurs present (Cardio) RATE: regular rate RHYTHM: regular rhythm GI: COMMON NORMALS: Normal to inspection, nondistended, normoactive bowel sounds present, Soft to palpation, non-tender and no masses PALPATION: Yes Soft to palpation Extremity: COMMON NORMALS: normal to inspection and full ROM Neuro: COMMON NORMALS: patient oriented x3, moves all extremities and no focal motor deficits Psych: COMMON NORMALS: mental status grossly normal, Normal thought process present and cooperative THOUGHT PROCESS: Normal thought process present Skin: COMMON NORMALS: no rashes or lesions noted and no wounds GENERAL SKIN EXAM: no rashes or lesions noted Course Vital Signs: Vital signs: Vital Signs Temperature 100.1 F H 12/01/22 18:05 Pulse Rate 79 12/01/22 19:20 Respiratory Rate 16 12/01/22 19:20 Blood Pressure 133/76 12/01/22 18:05 Pulse Oximetry 97 12/01/22 19:20 Oxygen Delivery Me thod 12/01/22 19:20 MDM - General Adult Medical Decision Making Patient presents here with increasing joint pain going on for a week Case having pain in his wrist and knees now he does have some slightly inflammatory marker elevation spoke to the hospitalist will admit at this time patient has been given steroids he been on antibiotics. Lab Data 12/01/22 18:43 12/01/22 18:43 Laboratory Results WBC 12.1 10^3/uL (4.0-10.0) H 12/01/22 18:43 RBC 5.08 10^6/uL (4.1-5.3) 12/01/22 18:43 Hgb 14.9 g/dL (11.7-16.6) 12/01/22 18:43 Hct 45.0 % (42.0-52.0) 12/01/22 18:43 MCV 88.6 fl (80-94) 12/01/22 18:43 MCH 29.3 pg (28.0-34.0) 12/01/22 18:43 MCHC 33.1 g/dL (30.0-36.0) 12/01/22 18:43 RDW 12.4 % (12.1-15.1) 12/01/22 18:43 Plt Count 229 10^3/cmm (130-400) 12/01/22 18:43 MPV 10.2 fL (7.4-10.4) 12/01/22 18:43 Neut % (Auto) 75.0 % 12/01/22 18:43 Lymph % (Auto) 13.8 % 12/01/22 18:43 [place] % (Auto) 10.7 % 12/01/22 18:43 Eos % (Auto) 0.1 % 12/01/22 18:43 Baso % (Auto) 0.2 % 12/01/22 18:43 Neut # (Auto) 9.07 10^3/uL (1.8-7.7) H 12/01/22 18:43 Lymph # (Auto) 1.7 10^3/uL (0.8-4.8) 12/01/22 18:43 [place] # (Auto) 1.3 10^3/uL (0.2-0.9) H 12/01/22 18:43 Eos # (Auto) 0.0 10^3/uL (0.0-0.8) 12/01/22 18:43 Baso # (Auto) 0.0 10^3/uL (0.0-0.1) 12/01/22 18:43 Nucleated RBC % (auto) 0 % 12/01/22 18:43 Nucleated RBCs # 0.0 /100WBC 12/01/22 18:43 ESR 38 mm/hr (0-10) H 12/01/22 18:43 Sodium 136 mmol/L (136-145) 12/01/22 18:43 Potassium 4.2 mmol/L (3.5-5.1) 12/01/22 18:43 Chloride 99 mmol/L (98-107) 12/01/22 18:43 Carbon Dioxide 24 mmol/L (22-29) 12/01/22 18:43 Anion Gap 17.2 (5-19) 12/01/22 18:43 BUN 16 mg/dL (8-23) 12/01/22 18:43 Creatinine 0.7 mg/dL (0.7-1.2) 12/01/22 18:43 GFR Calculation 112.8 mL/min (90-130) 12/01/22 18:43 Glucose 113 mg/dL (65-115) 12/01/22 18:43 Calculated Osmolality 284 mOsm/kg (285-295) L 12/01/22 18:43 Lactate 1.5 mmol/L (0.5-2.2) 12/01/22 18:43 Calcium 9.6 mg/dL (8.5-10.5) 12/01/22 18:43 Total Bilirubin 1.3 mg/dL (0.15-1.2) H 12/01/22 18:43 AST 51 U/L (0-40) H 12/01/22 18:43 ALT 49 U/L (0-41) H 12/01/22 18:43 Alkaline Phosphatase 90 U/L (40-130) 12/01/22 18:43 C-Reactive Protein 100.7 mg/L (0.0-4.9) H 12/01/22 18:43 Total Protein 7.6 g/dL (6.6-8.7) 12/01/22 18:43 Albumin 4.1 g/dL (3.5-5.2) 12/01/22 18:43 Globulin 3.5 g/dL (1.3-4.6) 12/01/22 18:43 Procalcitonin 0.17 ng/mL (0-0.5) 12/01/22 18:43 Discharge Plan Discharge Patient Disposition: Admitted As Inpatient Clinical Impression: Migratory polyarthritis Condition: Stable Prescriptions: No Action esomeprazole magnesium 40 mg capsule,delayed release(DR/EC) 40 mg PO DAILY citalopram 20 mg tablet See Rx Instructions .ROUTE .COMPLEX Qty: 90 3RF Dose Instruction: TAKE 1 TABLET BY MOUTH EVERY DAY Rx Instructions: TAKE 1 TABLET BY MOUTH EVERY DAY alprazolam [Xanax] 0.25 mg tablet 0.25 mg PO .[id number] PRN (Reason: anxiety) Qty: 120 3RF hydrocodone-acetaminophen 5-325 mg tablet 1 tab PO Q4H PRN (Reason: pain) 4 Days Qty: 20 0RF sulfamethoxazole-trimethoprim [Bactrim DS] 800-160 mg tablet 1 tab PO BID 10 Days Qty: 20 0RF prednisone 20 mg tablet 40 mg PO DAILY 5 Days Qty: 10 0RF trazodone 100 mg tablet See Rx Instructions .ROUTE .COMPLEX Qty: 30 4RF Dose Instruction: TAKE ONE TABLET BY MOUTH EVERY DAY Rx Instructions: TAKE ONE TABLET BY MOUTH EVERY DAY lisinopril 20 mg tablet 20 mg PO DAILY Percocet 7.5-325 mg tablet 1 tab PO Q6H PRN (Reason: pain) Qty: 14 0RF Referrals: Deni Ramirez DO [Primary Care Provider] - Coding Level of Care Code ED Assistant To The Director for Chg Fwd Exam Comprehensive
[2022-12-01 19:28] LABS: Procalcitonin 0.17 ng/mL (0-0.5)
--- NOTE | 2022-12-01 20:07 | P.HP_ITS ---
Providers/Chief Complaint Primary Care Provider: Deni Ramirez DO Chief Complaint: joint pain all over History of Present Illness John Fleming is a 67 year old male with past medical history of anxiety, hypertension presented to the hospital initially to urgent care on November 28 with complaint of foot swelling red itchy palms. Possible bug bite on foot. Also had joint pain that day. Had a rash on left leg up to the knee which he describes as bumpy. Patient was placed on Bactrim by urgent care doctor. Patient went deer hunting on and believes this all started at that time. He was seen in the ER on 29 November for complaint of mild fever, now having joint pains in shoulders and wrists. White count was normal. Today patient was seen at urgent care clinic again for complaint of polyarthralgia. He was given [place] prednisone Bactrim initially on 28 November. Today he has developed right knee pain and right hand stiffness and not being able to bend middle finger. Shoulder pains have gotten better. No longer having foot pain. Temperature 99-100. Has not had a BM in 4 days. He was asked to go to the hospital for further work-up. Seen today in ER. Patient complains of mild fever 99-100 and joint pains that are migratory at this time. Initially at presentation he stated the pain was 10 out of 10. Patient was given Solu-Medrol 125x1. When seen by auto service writer patient states the pain is started to ease up and is feeling a lot better. He states that he has a history of tickborne illness, possibly Lyme's earlier this year about 3 to 4 months ago. He says he possibly took doxycycline but does not remember correctly. He states he does not have a history of any rheumatoid Maurizio arthritis but his mom does have some sort of an arthritis and she is on morphine. Unable to give me more details. Denies a history of gout. Non-smoker. Does not recall being bit by any specific ticks or spiders or any other bugs. He does state that he felt there was something on the back of his head that he kept trying to pick at but was unable to get it off. Then it came off but they could not identify what it was. states they could not find it and therefore are unsure if that was really a tick or not Medications/Allergies Home Medications Medication Instructions Recorded Confirmed Last Taken Type esomeprazole magnesium 40 mg 40 mg PO DAILY 07/12/20 12/01/22 12/01/22 05:00 History capsule,delayed release lisinopril 20 mg tablet 20 mg PO DAILY 04/11/21 12/01/22 12/01/22 05:00 History alprazolam 0.25 mg tablet (Xanax) 0.25 mg PO .[id number] PRN anxiety 08/14/22 12/01/22 Unknown Rx #120 tabs trazodone 100 mg tablet See Rx Instructions .Route 10/07/22 12/01/22 11/30/22 20:00 Rx .COMPLEX #30 tabs hydrocodone 5 mg-acetaminophen 325 1 tab PO Q4H PRN pain 4 days #20 11/28/22 12/01/22 Unknown Rx mg tablet tabs prednisone 20 mg tablet 40 mg PO DAILY 5 days #10 tabs 11/28/22 12/01/22 12/01/22 05:00 Rx sulfamethoxazole 800 1 tab PO BID 10 days #20 tabs 11/28/22 12/01/22 12/01/22 05:00 Rx mg-trimethoprim 160 mg tablet (Bactrim DS) oxycodone-acetaminophen 7.5 mg-325 1 tab PO Q6H PRN pain #14 tabs 11/29/22 12/01/22 12/01/22 05:00 Rx mg tablet (Percocet) Allergies Allergy/AdvReac Type Severity Reaction Status Date / Time codeine AdvReac ADR-Vomitin Verified 12/01/22 16:43 g PFSH Acute PFSH: Medical History Bradycardia Essential hypertension Fatigue Hyperlipidemia LDL goal <100 LUCY (obstructive sleep apnea) Social History Smoking and tobacco status: never smoked Alcohol intake: current Alcohol intake frequency: other Vitals/I&O/Wt Last Vital Signs Temp 100.1 F H 12/01/22 18:05 Pulse 79 12/01/22 19:20 Resp 16 12/01/22 19:20 BP 133/76 12/01/22 18:05 Pulse Ox 97 12/01/22 19:20 O2 Del Method 12/01/22 19:20 Weight last 48 hrs Weight 101.151 kg Physical Exam Narrative: General: Alert oriented x3, patient seen laying in bed appearing comfortable at this time. at bedside. HEENT: Normocephalic, atraumatic, EOMI, breathing normally Cardio: Regular rate rhythm, normal S1-S2, Respiratory: Good bilateral air entry, no wheezes no rhonchi appreciated GI: Abdomen soft, nontender, nondistended, bowel sounds + Behavior: Appropriate and cooperative Extremities: Patient still in street clothes. Denies having a rash anywhere on the body. confirms that. Visible skin intact. Patient will need to have a skin examination. Wrists and knees are not warm to touch and are not very tender to palpation. Right hand is slightly swollen. Capillary refill less than 2-second. Pulses intact. No evidence of ischemia at this time. States pain is starting to ease up. Data 12/01/22 18:43 12/01/22 18:43 Micro: Microbiology 12/01/22 18:50 Blood Culture - Preliminary Blood SPECIMEN COLLECTED 12/01/22 18:43 Blood Culture - Preliminary Blood SPECIMEN COLLECTED A&P Assessment and plan (1) Migratory polyarthritis: (2) Arthralgia: (3) Essential hypertension: (4) LUCY (obstructive sleep apnea): Plan #Migratory polyarthralgia, #Hypertension #Possible bug bite/recent cellulitis #History of tickborne illness few months ago?? #Mildly elevated liver enzymes ? Solu-Medrol 40 every 12 hour ? Sliding scale insulin low-dose ? Check VITO, ASO titer, blood culture, CCP, Lyme's, procalcitonin, rheumatoid factor, strep throat culture, tick panel, uric acid, urine culture ? Patient could possibly have had a tick bite? He did go deer hunting ? Check hepatitis profile ? Low-grade fever present. Will check blood cultures ? Placed on doxycycline 100 twice daily empirically ? His labs do not indicate towards erlichiosis - Check xray knee to rule out joint effusion. If possible, tap for fluid. - denies hx of gout - my suspicion of autoimmune dz is not very high at this point. He possibly has gout vs some infectious arthritis. Will wait on further medications till above testing. - Will use ketoralac for pain and avoid opiates - Will need rheumatology referral at [place]. Full Code DVT PPX: heparin Attestations Medical Necessity Statement*: Possibly will cross > 2 midnight stay for workup of migratory polyarthralgia Coding Level of Care Code Acute Trimmer Machine Operator for Chg Fwd Diagnoses Migratory polyarthritis M13.80 Arthralgia M25.50 Essential hypertension I10 LUCY (obstructive sleep apnea) G47.33
[2022-12-01 20:27] LABS: Urine Appearance Clear (CLEAR); Urine Color Yellow (Yellow); pH Urine 6 (5-7)
[2022-12-01 20:28] LABS: Add Urine Microscopic? YES; Bilirubin Urine Neg (Negative); Blood Urine 2+ (Negative); Glucose Urine UA Norm (Normal); Ketones Urine Negative (Negative); Leukocyte Esterase Urine Negative (Negative); Nitrate Urine Negative (Negative); Protein Urine Neg (Negative); Specific Gravity, Urine 1.015 (1.005-1.030); Urobilinogen Urine 4 mg/dL (Negative)
[2022-12-01 20:29] LABS: Add Urine Culture? No; Mucus Urine TRACE /hpf
[2022-12-01] MEDS: HYDROmorphone 1 mg/mL INJ 1 mL IVP (20:36)
--- NOTE | 2022-12-01 22:50 | XRR_ITS ---
PROCEDURE INFORMATION: Exam: XR Left Wrist Exam date and time: 12/01/2022 11:06 PM Age: 67 years old Clinical indication: Patient HX: C/O pain and swelling to bilateral wrists and knees. No injury. History of old left wrist fracture. ; Additional info: Effusion? , Swelling TECHNIQUE: Imaging protocol: Radiologic exam of the Left wrist. Views: 1 or 2 views. COMPARISON: No relevant prior studies available. FINDINGS: Bones/joints: Old ulnar styloid process deformity. Moderate left wrist DJD. No fracture or dislocation. Soft tissues: Mild left wrist swelling. XR/XR wrist LT 2V [id number] IMPRESSION: Moderate left wrist DJD.
--- NOTE | 2022-12-01 22:50 | XRR_ITS ---
PROCEDURE INFORMATION: Exam: XR Right Knee Exam date and time: 12/01/2022 11:15 PM Age: 67 years old Clinical indication: Swelling or effusion of joint; Right; Patient HX: C/O pain and swelling to bilateral wrists and knees. No injury. History of old left wrist fracture. ; Additional info: R/O effusion TECHNIQUE: Imaging protocol: Radiologic exam of the Right knee. Views: 3 views. COMPARISON: No relevant prior studies available. FINDINGS: Bones/joints: No acute fracture or dislocation is noted. The skeletal structures seem age-appropriate. Mild diffuse right knee tricompartment DJD. Soft tissues: Unremarkable. XR/XR knee RT 3V* [id number] IMPRESSION: No acute findings.
--- NOTE | 2022-12-01 22:50 | XRR_ITS ---
PROCEDURE INFORMATION: Exam: XR Left Knee Exam date and time: 12/01/2022 11:11 PM Age: 67 years old Clinical indication: Swelling or effusion of joint; Patient HX: C/O pain and swelling to bilateral wrists and knees. No injury. History of old left wrist fracture. ; Additional info: R/O effusion TECHNIQUE: Imaging protocol: Radiologic exam of the Left knee. Views: 3 views. COMPARISON: CR (LOW EXM, ) 11/29/2022 4:42 PM FINDINGS: Bones/joints: No acute fracture or dislocation is noted. The skeletal structures seem age-appropriate. Mild diffuse left knee tricompartment DJD. Soft tissues: Unremarkable. XR/XR knee LT 3V* [id number] IMPRESSION: No acute findings.
--- NOTE | 2022-12-01 22:50 | XRR_ITS ---
PROCEDURE INFORMATION: Exam: XR Right Wrist Exam date and time: 12/01/2022 11:19 PM Age: 67 years old Clinical indication: Right; Patient HX: C/O pain and swelling to bilateral wrists and knees. No injury. History of old left wrist fracture. ; Additional info: Effusion? , Swelling TECHNIQUE: Imaging protocol: Radiologic exam of the Right wrist. Views: 1 or 2 views. COMPARISON: No relevant prior studies available. FINDINGS: Bones/joints: No acute fracture or dislocation is noted. The skeletal structures seem age-appropriate. Mild right wrist DJD throughout. Soft tissues: Mild right wrist soft tissue swelling. XR/XR wrist RT 2V [id number] IMPRESSION: 1. No acute fracture or dislocation. 2. Mild right wrist soft tissue swelling with mild DJD.
--- NOTE | 2022-12-01 23:07 | ECG_ITS ---
[facility] Test Date: 2022-12-02 Pat Name: John Fleming Department: Room: 262 Gender: Male Door Puller: : 1955 Requested By: Rufina Ni Order Number: [id number] Verónica MD: Diego Arndt M.D. Measurements Intervals [place] Rate: 64 P: 62 ID: [id number] QRS: 25 QRSD: 96 T: 83 QT: 387 QTc: 402 Interpretive Statements SINUS RHYTHM WITH FIRST DEGREE AV BLOCK NONSPECIFIC T-WAVE ABNORMALITY Compared to ECG 08/26/2019 14:59:23 First degree AV block now present T-wave abnormality now present Electronically Signed On 12-02-2022 20:44:42 DRAWING TRACER by Diego Arndt M.D. [id number]
[2022-12-01 23:10] LABS: Procalcitonin 0.18 ng/mL (0-0.5)
[2022-12-01 23:11] LABS: Thyroid Stimulating Hormone 5.28 uIU/mL (0.27-4.20)
[2022-12-01 23:23] LABS: Hepatitis A Antibody IgM Non-Reactive (Nonreactive); Hepatitis B Core AB, Total Non-Reactive (Nonreactive); Hepatitis B Surface AB 3.5 (11.5-1000); Hepatitis B Surface Antigen Non-Reactive (Nonreactive); Hepatitis C Virus Antibody Non-Reactive (Nonreactive)
[2022-12-01] MEDS: doxycycline 100 MG in sodium chloride 0.9% (plus) 100 ML IV (23:41)
[2022-12-01] MEDS: pantoprazole 40 mg SDV IVP (23:42)
[2022-12-01] MEDS: heparin 5,000 unit/mL INJ 1 mL 5000 UNIT SUBCUT (23:42)
[2022-12-01] MEDS: ketorolac 30 mg/mL INJ 15 MG IVP (23:42)
[2022-12-01] MEDS: sodium chloride 0.9% 1,000 ML 75 ML IV (23:43)
[2022-12-02] VITALS: BP 141/72; PULSE 75; RESP 17; TEMP 37.1; O2SAT 94
[2022-12-02 04:00] VITALS: BP 124/68; PULSE 62; RESP 17; TEMP 36.7; O2SAT 96
[2022-12-02 05:21] LABS: Basophils % 0.1 %; Hemoglobin 14.5 g/dL (11.7-16.6); Lymphocytes # 0.6 10^3/uL (0.8-4.8); Lymphocytes % 5.7 %; Mean Corpuscular HGB Conc 32.2 g/dL (30.0-36.0); Mean Corpuscular Hemoglobin 28.8 pg (28.0-34.0); Mean Corpuscular Volume 89.3 fl (80-94); Mean Platelet Volume 10.6 fL (7.4-10.4); Monocytes # 0.7 10^3/uL (0.2-0.9); Monocytes % 6.6 %; Neutrophils % 87.1 %; Nucleated Red Blood Cells % 0 %; Platelet Count 209 10^3/cmm (130-400); Red Blood Count 5.04 10^6/uL (4.1-5.3); Red Cell Distribution Width 12.6 % (12.1-15.1); White Blood Count 10.9 10^3/uL (4.0-10.0)
[2022-12-02] MEDS: ketorolac 30 mg/mL INJ 15 MG IVP ×2 (05:33→10:27)
[2022-12-02 05:43] LABS: Alanine Aminotransferase 69 U/L (0-41); Albumin Level 3.9 g/dL (3.5-5.2); Alkaline Phosphatase 102 U/L (40-130); Anion Gap 16.4 (5-19); Aspartate Amino Transferase 45 U/L (0-40); Blood Urea Nitrogen 19 mg/dL (8-23); Calcium 9.2 mg/dL (8.5-10.5); Carbon Dioxide 22 mmol/L (22-29); Chloride 99 mmol/L (98-107); Globulin 2.9 g/dL (1.3-4.6); Glomerular Filtration Rate 112.8 mL/min (90-130); Glucose 255 mg/dL (65-115); Magnesium 2.1 mg/dL (1.7-2.3); Osmolality Calculated 287 mOsm/kg (285-295); Potassium 4.4 mmol/L (3.5-5.1); Sodium 133 mmol/L (136-145); Total Bilirubin 1.8 mg/dL (0.15-1.2); Total Protein 6.8 g/dL (6.6-8.7)
[2022-12-02 06:24] LABS: Glucose Point of Care 222 mg/dL (70-110)
[2022-12-02 07:38] VITALS: BP 136/82; PULSE 64; RESP 16; TEMP 36.7; O2SAT 94
[2022-12-02] MEDS: insulin lispro 100 unit/1 mL SUBCUT ×2 (08:34→12:50)
[2022-12-02] MEDS: heparin 5,000 unit/mL INJ 1 mL 5000 UNIT SUBCUT (10:27)
[2022-12-02] MEDS: ondansetron 2 mg/ML SDV 2 mL 4 MG IVP (10:27)
[2022-12-02 11:24] VITALS: BP 130/76; PULSE 59; RESP 16; TEMP 36.9; O2SAT 95
[2022-12-02 12:03] LABS: Glucose Point of Care 202 mg/dL (70-110)
[2022-12-02] MEDS: doxycycline 100 MG in sodium chloride 0.9% (plus) 100 ML IV (12:33)
--- NOTE | 2022-12-02 13:02 | USCV_ITS ---
John Fleming Age: 67 Gender: M : 1955 Exam Date: 12/02/2022 14:04 Ordering Phys: Scot Schwartz MD Technologist: Broderick Najera [place] [facility] [place]: ?endocarditis BP: 130 / 72 HR: 77 Rhythm: Sinus Technical Quality: Adequate MEASUREMENTS (Male / Female) Normal Values 2D ECHO LV Diastolic Diameter PLAX 4.3 cm 4.2 - 5.9 / 3.9 - 5.3 cm LV Systolic Diameter PLAX 2.7 cm IVS Diastolic Thickness 1.3 cm 0.6 - 1.0 / 0.6 - 0.9 cm IVS Systolic Thickness 1.4 cm LVPW Diastolic Thickness 1.6 cm 0.6 - 1.0 / 0.6 - 0.9 cm LVPW Systolic Thickness 1.2 cm LVOT Diameter 2.0 cm LV Ejection Fraction 2D Teich 66.2 % LV Ejection Fraction MOD 2C 52.3 % LV Ejection Fraction 2C AL 52.0 % LA Diameter 4.5 cm IVC Diameter 1.9 cm M-MODE Aortic Annulus Diameter 3.7 cm LA Ao Ratio MM 1.4 MV E Point Septal Separation 0.7 cm DOPPLER AV Peak Velocity 162.7 cm/s LVOT Peak Velocity 114.0 cm/s AV Area Cont Eq vti 2.9 cm squared AV Area Cont Eq pk 2.3 cm squared MV Area PHT 5.0 cm squared Mitral E to A Ratio 1.1 MV E' Velocity 58.5 cm/s Mitral E to MV E' Ratio 11.5 Mitral E to LV E' Lateral Ratio 16.2 Mitral E to LV E' Septal Ratio 9.0 TR Peak Velocity 234.7 cm/s TR Peak Gradient 22.0 mmHg TV Peak E Velocity 110.0 cm/s Right Atrial Pressure 3.0 mmHg Pulmonary Artery Systolic Pressu 25.0 mmHg RV Acceleration Time 0.2 s FINDINGS Left Ventricle Left ventricle is normal in size. LV systolic function is normal with EF 55 to 60%. No regional wall motion abnormalities are seen. Right Ventricle Normal in size and function Right Atrium Normal in size Left Atrium Dilated Mitral Valve Structurally normal mitral valve. No vegetation is seen. Trace mitral regurgitation. Aortic Valve Grossly normal. No significant stenosis or regurgitation seen Tricuspid Valve Not well-visualized. Trace tricuspid regurgitation. Insufficient TR jet to calculate RVSP. Pulmonic Valve Not well-visualized Pericardium Normal Aorta Normal in szie IVC Appears to be normal CONCLUSIONS Technically limited quality echocardiogram because of poor ultrasonic windows. LV systolic function is normal with EF 55 to 60%. Dilated left atrium Trace mitral regurgitation. Compared to prior echocardiogram from 2018, no significant changes are seen Teo Mendez MD (Electronically Signed) Final Date: 02 December 2022 15:36 S
[2022-12-02 13:19] LABS: Troponin T (5th) Once 7 ng/L (0-15)
[2022-12-02] MEDS: amoxicillin 500 mg Capsule 1000 MG PO (14:07)
[2022-12-02 15:09] VITALS: BP 130/76; PULSE 59; RESP 16; TEMP 36.9; O2SAT 95
--- NOTE | 2022-12-02 15:31 | PM.DCS ---
Discharge Providers Date of Admission: 12/01/22 20:06 Date of Discharge: December 02, 2022 Attending Provider at Admission: Rufina Ni MD Attending Provider at Discharge: Scot Schwartz Primary Care Provider: Deni Ramirez DO Diagnoses at Discharge Discharge Diagnosis (1) Migratory polyarthritis: Status: Acute (2) Arthralgia: Status: Acute (3) Essential hypertension: Status: Acute (4) LUCY (obstructive sleep apnea): Status: Acute Reason for Visit Reason for Visit: joint pain all over Hospital Course Hospital Course Pleasant 67-year-old gentleman recently retired from working at the here to the hospital, with past medical history of HTN, HLD, LUCY, past history of tickborne illness, recent flulike illness several weeks ago through which both he and his went through, his ended up having pneumonia, he himself ended up having additionally sinus infection and sore throat. It does appear he was treated with 10 days of Augmentin after being seen in urgent care. He states that his sinus symptoms had resolved. As he felt better last week he went to the [email or web address]. At the end of the week on the sole of the left foot he noted small purplish dimple and there was swelling of the left foot, additionally he had arthralgia symptoms in his wrist, shoulder. The location of the joint pain has been shifting. He did receive additional course of Bactrim for consideration of possible bug bite, possible cellulitis, although denies ever having erythema or any progression of the skin or drainage from the spot on his foot. He also never found any blood despite emptying his boots out. He does state he has been also having fevers at home. The spot has since disappeared, there has been no further erythema or swelling of the left foot or ankle. He frequently had pain and swelling in both wrists, however, some neuropathic symptoms in his hands to the point that it was difficult for him to put on his CPAP mask. Transiently he states he also had a spotty rash on his hands which had also resolved spontaneously, without any other rashes. On presentation to the hospital he had also complained of right knee pain, right hand stiffness, some swelling of the left wrist. He has also been taking prednisone which he states was prescribed during one of his visits. Here on hospitalization he was found to have my leukocytosis 12.1, mostly neutrophilic, with lymphopenia, 0.6. Low-grade fever up to 100.1. Noted elevation of ESR up to 38 and up to 100.7. Mild transaminitis, 51, ALT 49. Does also have chronic T bili elevation (with history of cholecystectomy). Urinalysis with microscopic hematuria, 5-10 RBC. Not suggestive of UTI. X-rays of his knees were unremarkable. 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 On chemistries noted with episodes of hyperglycemia up to 250s, although states that he recently been tested for diabetes and not found to be diabetic, suspected related to the recent steroid use. He received a dose of Solu-Medrol, ketorolac, and opioid. He was also started on doxycycline overnight reports improvement in pain and other symptoms, and with resolution of neuropathic symptoms. He so far also remains afebrile. He requests to return home. He understands that his condition will require further diagnosis as the exact cause of his symptoms is not currently established. Additional evaluation during hospital visit includes blood culture, streptococcal culture, ASO. Tick panel. Symptoms not suggestive of gout and uric acid is low. Rheumatoid factor noted elevated mildly at 17, similar to prior back in July 2019. He had since also had a negative result in February. Anti-CCP and VITO have been requested and pending. On EKG she is noted to have DE prolongation. Troponin was checked and is normal. He is had no chest pain or abdominal pain. Echocardiogram is requested and is being obtained prior to discharge. Hepatitis panel without any elevated antibodies, hepatitis B surface antibody is low. Given symptoms of migratory polyarthritis, fever, recent sinus infection, possibility is of acute rheumatic fever, and he indeed would fit Umanzor criteria, however, evidence of streptococcal infection is not currently confirmed. He does have polyarthritis, does not have symptoms of carditis, with additional assessment for subclinical carditis as above with TTE, has had fever but does not fit criteria, but does have elevated inflammatory markers and DE prolongation. Has recent sinus infection possible acute rheumatic fever are consideration with recent sinus infection discussed with him additional course of amoxicillin which is provided. Additionally with rash in his hands although currently resolved, recent hunting trip, lymphopenia, mild transaminitis, possible RMSF or other tickborne illness, he is empirically continued on doxycycline, pending tick panel. Please additionally follow-up blood culture. Would avoid any intra-articular corticosteroid injections or immunosuppressants until infection is ruled out. Prednisone is not continued beyond the 5-day course that was prescribed to him. Given a 10-day course of ibuprofen for symptomatic relief. 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 He is given referral additionally for assessment by rheumatology. Incidentally also noted mild elevation of TSH, 5.28, free T4 is requested. Please follow-up thyroid function. Physical Exam Narrative: Accompanied by family. Const: COMMON NORMALS: patient oriented x3 and alert GENERAL APPEARANCE: cooperative ORIENTATION/CONSCIOUSNESS: Yes awake HENMT: COMMON NORMALS: oropharynx normal Neck/C-Spine: COMMON NORMALS: no JVD Resp: COMMON NORMALS: normal respiratory effort and clear to auscultation bilaterally AUSCULTATION: clear to auscultation bilaterally Cardio: COMMON NORMALS: no JVD, regular rhythm, S1 normal heart sound present, S2 normal heart sound present and No murmurs present (Cardio) RHYTHM: regular rhythm HEART SOUNDS: S1 normal heart sound present and S2 normal heart sound present GI: COMMON NORMALS: Normal to inspection, nondistended, normoactive bowel sounds present, Soft to palpation and non-tender PALPATION: Yes Soft to palpation Extremity: COMMON NORMALS: no joint enlargement and no pedal edema OTHER: Mild swelling left wrist, no erythema. Neuro: COMMON NORMALS: patient oriented x3 and moves all extremities SENSORIUM/ORIENTATION: Yes alert Skin: COMMON NORMALS: no rashes or lesions noted GENERAL SKIN EXAM: no rashes or lesions noted OTHER: No erythema swelling or rash of left foot, no lesions on plantar surface. Discharge Data Studies Completed and Pending Completed Studies During Hospitalization Category Date Time Status XR knee LT 3V* [id number] Urgent Exams 12/01/22 22:50 Completed XR knee RT 3V* [id number] Urgent Exams 12/01/22 22:50 Completed XR wrist LT 2V [id number] Urgent Exams 12/01/22 22:50 Completed XR wrist RT 2V [id number] Routine Exams 12/01/22 22:50 Completed Pending at discharge Category Date Time Status VITO Screen w/ Reflex Stat Lab 12/01/22 04:00 Received Anti-streptolysin O Stat Lab 12/01/22 04:00 Received Blood Culture Stat Lab 12/01/22 18:50 Results CCP [Cyclic Citrullinated Peptide] Stat Lab 12/01/22 04:00 Received Lymes Ab IgG/IgM ref WB [Lymes Western Blot] Stat Lab 12/01/22 04:00 Received Streptococcus Culture Group A Stat Lab 12/02/22 01:20 Received T4, Thyroxine, Total Routine Lab 12/02/22 04:45 Received Tick Panel Stat Lab 12/01/22 04:00 Received CV. echo complete* [id number] Routine Ultrasound 12/02/22 13:02 Taken Radiology Impressions Knee X-Ray 12/01/22 22:50 IMPRESSION: No acute findings. Wrist X-Ray 12/01/22 22:50 IMPRESSION: Moderate left wrist DJD. Laboratory Results WBC 10.9 10^3/uL (4.0-10.0) H 12/02/22 04:45 RBC 5.04 10^6/uL (4.1-5.3) 12/02/22 04:45 Hgb 14.5 g/dL (11.7-16.6) 12/02/22 04:45 Hct 45.0 % (42.0-52.0) 12/02/22 04:45 MCV 89.3 fl (80-94) 12/02/22 04:45 MCH 28.8 pg (28.0-34.0) 12/02/22 04:45 MCHC 32.2 g/dL (30.0-36.0) 12/02/22 04:45 RDW 12.6 % (12.1-15.1) 12/02/22 04:45 Plt Count 209 10^3/cmm (130-400) 12/02/22 04:45 MPV 10.6 fL (7.4-10.4) H 12/02/22 04:45 Neut % (Auto) 87.1 % 12/02/22 04:45 Lymph % (Auto) 5.7 % 12/02/22 04:45 [place] % (Auto) 6.6 % 12/02/22 04:45 Eos % (Auto) 0.0 % 12/02/22 04:45 Baso % (Auto) 0.1 % 12/02/22 04:45 Neut # (Auto) 9.50 10^3/uL (1.8-7.7) H 12/02/22 04:45 Lymph # (Auto) 0.6 10^3/uL (0.8-4.8) L 12/02/22 04:45 [place] # (Auto) 0.7 10^3/uL (0.2-0.9) 12/02/22 04:45 Eos # (Auto) 0.0 10^3/uL (0.0-0.8) 12/02/22 04:45 Baso # (Auto) 0.0 10^3/uL (0.0-0.1) 12/02/22 04:45 Nucleated RBC % (auto) 0 % 12/02/22 04:45 Nucleated RBCs # 0.0 /100WBC 12/02/22 04:45 ESR 38 mm/hr (0-10) H 12/01/22 18:43 Sodium 133 mmol/L (136-145) L 12/02/22 04:45 Potassium 4.4 mmol/L (3.5-5.1) 12/02/22 04:45 Chloride 99 mmol/L (98-107) 12/02/22 04:45 Carbon Dioxide 22 mmol/L (22-29) 12/02/22 04:45 Anion Gap 16.4 (5-19) 12/02/22 04:45 BUN 19 mg/dL (8-23) 12/02/22 04:45 Creatinine 0.7 mg/dL (0.7-1.2) 12/02/22 04:45 GFR Calculation 112.8 mL/min (90-130) 12/02/22 04:45 Glucose 255 mg/dL (65-115) H 12/02/22 04:45 POC Glucose 202 mg/dL (70-110) H 12/02/22 11:20 Calculated Osmolality 287 mOsm/kg (285-295) 12/02/22 04:45 Lactate 1.5 mmol/L (0.5-2.2) 12/01/22 18:43 Uric Acid 3.0 mg/dL (3.4-7.0) L 12/01/22 18:43 Calcium 9.2 mg/dL (8.5-10.5) 12/02/22 04:45 Magnesium 2.1 mg/dL (1.7-2.3) 12/02/22 04:45 Total Bilirubin 1.8 mg/dL (0.15-1.2) H 12/02/22 04:45 AST 45 U/L (0-40) H 12/02/22 04:45 ALT 69 U/L (0-41) H 12/02/22 04:45 Alkaline Phosphatase 102 U/L (40-130) 12/02/22 04:45 Troponin T Gen 5 ng/L 7 ng/L (0-15) 12/02/22 04:45 C-Reactive Protein 100.7 mg/L (0.0-4.9) H 12/01/22 18:43 Total Protein 6.8 g/dL (6.6-8.7) 12/02/22 04:45 Albumin 3.9 g/dL (3.5-5.2) 12/02/22 04:45 Globulin 2.9 g/dL (1.3-4.6) 12/02/22 04:45 Procalcitonin 0.17 ng/mL (0-0.5) 12/01/22 18:43 Procalcitonin 0.18 ng/mL (0-0.5) 12/01/22 18:43 TSH 5.28 uIU/mL (0.27-4.20) H 12/01/22 18:43 Urine Color Yellow (Yellow) 12/01/22 19:34 Urine Appearance Clear (CLEAR) 12/01/22 19:34 Urine pH 6 (5-7) 12/01/22 19:34 Ur Specific [place] 1.015 (1.005-1.030) 12/01/22 19:34 Urine Protein Neg (Negative) 12/01/22 19:34 Urine Glucose (UA) Norm (Normal) 12/01/22 19:34 Urine Ketones Negative (Negative) 12/01/22 19:34 Urine Blood 2+ (Negative) H 12/01/22 19:34 Urine Nitrate Negative (Negative) 12/01/22 19:34 Urine Bilirubin Neg (Negative) 12/01/22 19:34 Urine Urobilinogen 4 mg/dL (Negative) H 12/01/22 19:34 Ur Leukocyte Esterase Negative (Negative) 12/01/22 19:34 Urine RBC 5-10 /hpf (0-2) H 12/01/22 19:34 Urine WBC None /hpf (0-5) 12/01/22 19:34 Ur Squamous Epith Cells None /hpf (0-5) 12/01/22 19:34 Amorphous Sediment Not Reportable 12/01/22 19:34 Urine Bacteria None /hpf (NONE) 12/01/22 19:34 Urine Mucus Trace /hpf 12/01/22 19:34 Rheumatoid Factor 17.0 IU/mL (0-14) H 12/01/22 18:43 Hepatitis A IgM Ab Non-reactive (Nonreactive) 12/01/22 18:43 Hep Bs Antigen Non-reactive (Nonreactive) 12/01/22 18:43 Hep Bs Antibody 3.5 (11.5-1000) L 12/01/22 18:43 Hep B Core Total Ab Non-reactive (Nonreactive) 12/01/22 18:43 Hepatitis C Antibody Non-reactive (Nonreactive) 12/01/22 18:43 Vitals Last Vital Signs Temp 98.4 F 12/02/22 15:09 Pulse 59 L 12/02/22 15:09 Resp 16 12/02/22 15:09 BP 130/76 12/02/22 15:09 Pulse Ox 95 12/02/22 15:09 O2 Del Method 12/02/22 11:24 Discharge Plan Discharge Patient Disposition: Home Condition: Stable Prescriptions: New amoxicillin 500 mg Capsule 1,000 mg PO Q24H 10 Days Qty: 20 0RF doxycycline hyclate 100 mg tablet 100 mg PO BID 14 Days Qty: 28 0RF ibuprofen 200 mg tablet 200 mg PO TID 10 Days Qty: 30 0RF Continued esomeprazole magnesium 40 mg capsule,delayed release(DR/EC) 40 mg PO DAILY prednisone 20 mg tablet 40 mg PO DAILY 5 Days Qty: 10 0RF lisinopril 20 mg tablet 20 mg PO DAILY Xanax 0.25 mg tablet 0.25 mg PO Q6H PRN (Reason: anxiety) trazodone 100 mg tablet 100 mg PO BEDTIME oxycodone-acetaminophen [Percocet] 7.5-325 mg tablet 1 tab PO Q6H PRN (Reason: pain) Qty: 14 0RF Discontinued sulfamethoxazole-trimethoprim [Bactrim DS] 800-160 mg tablet 1 tab PO BID 10 Days Qty: 20 0RF Discharge Orders: Discharge Order (Routine); Ordered 12/02/22 Ordered By: Scot Schwartz Referrals: Rheumatology [Provider Group] - 12/04/22 2:00 pm (Migratory polyarthritis, possible ARF or other cause [phone]) Deni Ramirez DO [Primary Care Provider] - 12/09/22 1:00 pm Patient Instructions: Doxycycline (By mouth), Ibuprofen (By mouth), Amoxicillin (By mouth) (Amoxicot, Amoxil, Amoxil Pediatric, Trimox), Arthralgia (ED), Opioid Safety Activity Restrictions/Additional Instructions: Complete antibiotic course with amoxicillin due to suspicion for possible acute rheumatic fever. Streptococcal culture as well as antistreptolysin antibody are pending. Due to possible tickborne illness please complete doxycycline course tick panel is pending. Please follow-up with your primary doctor for reassessment of the studies, as well as pending arranging studies including VITO, anti-CCP. Follow-up with your primary doctor regarding results of echocardiogram which is to be obtained before you leave the hospital. Follow-up also regarding pending blood cultures. Please have your primary doctor also follow-up with your primary for reassessment of bilirubin with chronic elevation and currently also mild transaminitis. In the setting of fever, avoid steroid injections until exact cause of your symptoms can be established and infection ruled out. Please follow-up with rheumatology for additional assessment as well due to unclear cause of the migratory polyarthritis with fever. Follow-up with your primary doctor regarding mild elevation of TSH. Discharge Attestations Time Spent in Discharge Care*: greater than 30 min Quality Metrics Clinical Quality Measures [ No reported AMI, CVA or VTE this stay] Coding Level of Care Code Acute Chg FW DC note Diagnoses Migratory polyarthritis M13.80 Arthralgia M25.50 Essential hypertension I10 LUCY (obstructive sleep apnea) G47.33
[2022-12-03 09:24] LABS: T4 Total 6.7 mcg/dL (4.9-10.5)
[2022-12-03 12:49] LABS: Anti-streptolysin O <50 IU/mL (<200)
[2022-12-03 13:50] LABS: Lyme AB Screen <0.90 index; Lymes IGG WB <0.90 index
[2022-12-03 14:25] LABS: Anti-Nuclear Antibody Screen NEGATIVE (NEGATIVE)
[2022-12-03 16:05] LABS: Cyclic Citrullinated Peptide <16 UNITS
[2022-12-08 17:19] LABS: E. Chaffeensis AB IGG <1:64; E. Chaffeensis AB IGM <1:20
[2022-12-09 21:26] LABS: RMSF IGG NOT DETECTED; RMSF IGM NOT DETECTED
== END 2022-12-02 15:20 | disposition home or self-care (01) ==
LOC: ER 20:15 → MEDSURG 21:18
PROVIDERS: Admitting Provider Internal Medicine; Emergency Provider Emergency Medicine; PCP Family Medicine; Visit Provider Internal Medicine
DX: M19.032 Primary osteoarthritis, left wrist (principal); M19.031 Primary osteoarthritis, right wrist; I10 Essential (primary) hypertension; G47.33 Obstructive sleep apnea (adult) (pediatric); E78.5 Hyperlipidemia, unspecified
CPT/HCPCS: 36415; 36416; 73100; 73562; 80053; 81001; 82962; 83605; 83735; 84145; 84436; 84443; 84484; 84550; 85025; 85651; 86038; 86060; 86140; 86200; 86431; 86617; 86618; 86666; 86705; 86706; 86709; 86757; 86803; 87040; 87081; 87340; 93005; 93306; 96372; 96374; 99285; C9113; G0378; J1170; J1644; J1815; J1885; J2405; J2920; J2930; J3490; J7030

== ENCOUNTER → 2022-12-04 15:40 | Outpatient (BNVA) | payer MEDICARE, SELFPAY | PROVIDERS: PCP Family Medicine; Visit Provider Internal Medicine | DX: M45.0 Ankylosing spondylitis of multiple sites in spine (principal); M25.50 Pain in unspecified joint; L40.9 Psoriasis, unspecified; M13.80 Other specified arthritis, unspecified site; Z11.1 Encounter for screening for respiratory tuberculosis; W57.XXXA Bitten or stung by nonvenomous insect and other nonvenomous arthropods, initial encounter | CPT/HCPCS: 72202; 73120; 73620; 82306; 82310; 82550; 82728; 83516; 83540; 83735; 83970; 84100; 85651; 86038; 86140; 86480; 86812; 99203 ==

== ENCOUNTER 2024-01-02 10:42 | Emergency (ER) | payer MEDICARE, SELFPAY ==
[2024-01-02 11:16] VITALS: BP 129/73; PULSE 50; RESP 18; TEMP 36.6; O2SAT 98; BMI 28.2
[2024-01-02 12:02] LABS: Basophils % 0.5 %; Eosinophils # 0.1 10^3/uL (0.0-0.8); Eosinophils % 3.7 %; Hematocrit 46.6 % (37-53); Lymphocytes % 26.2 %; Mean Corpuscular HGB Conc 32.6 g/dL (30-55); Mean Corpuscular Hemoglobin 29.1 pg (27-33); Mean Corpuscular Volume 89.3 fl (82-101); Mean Platelet Volume 9.9 fL (7.4-10.4); Monocytes # 0.5 10^3/uL (0.2-0.9); Monocytes % 12.6 %; Neutrophils # 2.12 10^3/uL (1.8-7.7); Neutrophils % 56.7 %; Nucleated Red Blood Cells % 0 %; Platelet Count 144 10^3/cmm (157-399); Red Blood Count 5.22 10^6/uL (3.85-5.65); Red Cell Distribution Width 12.3 % (12.1-15.1); White Blood Count 3.74 10^3/uL (3.29-11.43)
[2024-01-02 12:22] LABS: Alanine Aminotransferase 64 U/L (0-41); Albumin Level 4.2 g/dL (3.5-5.2); Alkaline Phosphatase 125 U/L (40-130); Anion Gap 14.6 (5-19); Aspartate Amino Transferase 22 U/L (0-40); Blood Urea Nitrogen 15 mg/dL (8-23); Calcium 9.8 mg/dL (8.5-10.5); Carbon Dioxide 26 mmol/L (22-29); Chloride 106 mmol/L (98-107); Globulin 2.8 g/dL (1.3-4.6); Glomerular Filtration Rate 112.5 mL/min (90-130); Glucose 94 mg/dL (65-115); Lipase 38 U/L (13-60); Osmolality Calculated 295 mOsm/kg (285-295); Potassium 4.6 mmol/L (3.5-5.1); Sodium 142 mmol/L (136-145); Total Bilirubin 1.3 mg/dL (0.15-1.2)
--- NOTE | 2024-01-02 12:45 | CTR_ITS ---
PROCEDURE INFORMATION: Exam: CT Abdomen And Pelvis With Contrast Exam date and time: 01/02/2024 2:05 PM Age: 68 years old Clinical indication: Abdominal pain; Epigastric; Additional info: Epigastric/abd pain TECHNIQUE: Imaging protocol: Computed tomography of the abdomen and pelvis with contrast. Radiation optimization: All CT scans at this facility use at least one of these dose optimization techniques: automated exposure control; mA and/or kV adjustment per patient size (includes targeted exams where dose is matched to clinical indication); or iterative reconstruction. Contrast material: OMNI 350; Contrast volume: 100 ml; Contrast route: INTRAVENOUS (IV); COMPARISON: CT abdomen pelvis w con* [id number] 02/17/2022 10:53 AM RADIATION DOSE METRICS: Total DLP (mGy-cm): 794.28 FINDINGS: Lungs: There are atelectatic changes in the dependent portions both lower lobes. Diaphragm: Small hiatal hernia. Liver: Normal. No mass. Gallbladder and bile ducts: Surgical changes of post cholecystectomy. No biliary dilatation. Pancreas: Normal. No ductal dilation. Spleen: There is borderline splenomegaly, similar to prior. Adrenal glands: Normal. No mass. Kidneys and ureters: Normal. No hydronephrosis. Stomach and bowel: There is diverticulosis of the descending and sigmoid colon with no changes of diverticulitis. Appendix: No evidence of appendicitis. Intraperitoneal space: Unremarkable. No free air. No significant fluid collection. Vasculature: There are aortic calcifications with no aneurysm. Pelvic phleboliths. Lymph nodes: Unremarkable. No enlarged lymph nodes. Urinary bladder: Unremarkable as visualized. Reproductive: There are prostate calcifications. Bones/joints: There is degenerative disease of bilateral sacroiliac joints. There is a mild curvature of the lumbar spine convex to the left. There is mild degenerative disease of both hip joints. There is 2 mm retrolisthesis of L5 over S1. Soft tissues: Unremarkable. CT/CT abdomen pelvis w con* [id number] IMPRESSION: No acute intra-abdominal process.
[2024-01-02] MEDS: iohexol 350 mg/mL 500 mL Btl (per mL) IV (14:09)
[2024-01-02 14:17] LABS: Urine Appearance Clear (CLEAR); Urine Color Yellow (Yellow); pH Urine 6 (5-7)
[2024-01-02 14:18] LABS: Add Urine Culture? No; Bacteria Urine TRACE /hpf; Bilirubin Urine Neg (Negative); Blood Urine Neg (Negative); Glucose Urine UA Norm (Normal); Ketones Urine 1+ (Negative); Leukocyte Esterase Urine Negative (Negative); Mucus Urine 1+ /hpf; Nitrate Urine Negative (Negative); Protein Urine Neg (Negative); Specific Gravity, Urine 1.015 (1.005-1.030); Urobilinogen Urine Norm (Negative); WBC Urine RARE /hpf (0-5)
--- NOTE | 2024-01-02 15:26 | ED_ITS ---
HPI - Abdominal Pain 2 General: Chief Complaint: Abdominal Pain Stated Complaint: abd pain, nausea, rash Time Seen by Provider: 01/02/24 11:12 History of Present Illness: 68-year-old male presents to the emergen cy department complaints of upper abdominal pain intermittent since late October 2023. He states he has been seen by his primary care provider and had an EGD on December 17. Patient states that he had a follow-up appointment on December 31, 2023 and the provider advised him that he may have some inflammation around his pancreas. He presents today with 4 out of 10 intermittent epigastric pain and states he feels nauseated. Associated Symptoms: Reports nausea Review of Systems 2 General: Reports: 10 or more systems reviewed and unremarkable except in HPI and below GI: Reports: abdominal pain and nausea PFSH ED 2 PFSH: Medical History Bradycardia Essential hypertension Fatigue Hyperlipidemia LDL goal <100 LUCY (obstructive sleep apnea) Social History Smoking and tobacco/nicotine status: never used tobacco/nicotine Alcohol intake: current Alcohol intake frequency: other Substance/Drug Use: never Physical Exam 2 Narrative: EXAM NARRATIVE: Constitutional: the patient appears well nourished and with normal development. Vital signs reviewed as documented. HENMT: Normocephalic, atraumatic. External ears normal appearance without drainage. Nose without drainage, normal appearance. Mucus membranes moist. Neck is supple, No jugular venous distension, trachea is midline, no appreciable carotid bruits. No lymphadenopathy. No meningeal signs. Flexion, extension and lateral rotation is without pain. Eyes: Pupils are equal, round, reactive to light and accommodation. No scleral icterus. Extra-ocular movement are intact. Thorax is symmetrical and with equal rise and fall with respirations. Resp: Lungs are clear to auscultation. No wheezes, rales, crackles or ronchi at present. Cardio: Regular rate and rhythm. Positive S1, S2. No appreciable murmurs, rubs or gallops. GI: Abdominal exam reveals normal bowel sounds to all quadrants. No organomegaly. No obvious palpable masses noted. No hepatomegally appreciated. Soft, non-tender to palpation. Extremity: Extremities are non-edematous and both femoral and pedal pulses are 2+ and equal bilaterally. Moves all extremities well, sensation in all extremities. Neuro: Alert and oriented x4, person, place, time and situation. Cranial nerves II through XII are grossly intact, there is no focal neurological deficits that I can appreciate at present. Motor strength in the upper and lower extremities are equal and bilateral 5/5. Psych: Cooperative, calm, normal thought process, appropriate judgment. Skin: No lesions, rashes. No gross abnormalities noted. Back: Symmetrical, no obvious deformity, No CVA tenderness Course 2 Vital Signs: Vital signs: Vital Signs Temperature 97.8 F 01/02/24 11:16 Pulse Rate 59 L 01/02/24 16:06 Respiratory Rate 18 01/02/24 11:16 Blood Pressure 133/73 01/02/24 16:06 Pulse Oximetry 96 01/02/24 16:06 Oxygen Delivery Me thod Room Air 01/02/24 11:16 MDM - Abdominal Pain Medical Decision Making Physical exam completed and documented, I will obtain laboratory evaluation to include a CBC, CMP, lipase, urinalysis, and a CT scan of the patient's abdomen pelvis to evaluate for possible differential diagnosis of bowel obstruction, incarcerated hernia, abdominal wall strain, abdominal wall hematoma, constipation. I will provide the patient IV access and IV fluid as well as a CT scan abdomen pelvis with contrast for evaluation for possible colitis, acute appendicitis, diverticulitis. Medical Records I reviewed the patient's medical records. Lab Data I reviewed the patient's lab results. 01/02/24 11:51 01/02/24 11:51 Labs/Radiology: Radiology Impressions Abdomen/Pelvis CT 01/02/24 12:45 IMPRESSION: No acute intra-abdominal process. Laboratory Results WBC 3.74 10^3/uL (3.29-11.43) 01/02/24 11:51 RBC 5.22 10^6/uL (3.85-5.65) 01/02/24 11:51 Hgb 15.20 g/dL (11.27-16.99) 01/02/24 11:51 Hct 46.6 % (37-53) 01/02/24 11:51 MCV 89.3 fl (82-101) 01/02/24 11:51 MCH 29.1 pg (27-33) 01/02/24 11:51 MCHC 32.6 g/dL (30-55) 01/02/24 11:51 RDW 12.3 % (12.1-15.1) 01/02/24 11:51 Plt Count 144 10^3/cmm (157-399) L 01/02/24 11:51 MPV 9.9 fL (7.4-10.4) 01/02/24 11:51 Neut % (Auto) 56.7 % 01/02/24 11:51 Lymph % (Auto) 26.2 % 01/02/24 11:51 [place] % (Auto) 12.6 % 01/02/24 11:51 Eos % (Auto) 3.7 % 01/02/24 11:51 Baso % (Auto) 0.5 % 01/02/24 11:51 Neut # (Auto) 2.12 10^3/uL (1.8-7.7) 01/02/24 11:51 Lymph # (Auto) 1.0 10^3/uL (0.8-4.8) 01/02/24 11:51 [place] # (Auto) 0.5 10^3/uL (0.2-0.9) 01/02/24 11:51 Eos # (Auto) 0.1 10^3/uL (0.0-0.8) 01/02/24 11:51 Baso # (Auto) 0.0 10^3/uL (0.0-0.1) 01/02/24 11:51 Nucleated RBC % (auto) 0 % 01/02/24 11:51 Nucleated RBCs # 0.0 /100WBC 01/02/24 11:51 Sodium 142 mmol/L (136-145) 01/02/24 11:51 Potassium 4.6 mmol/L (3.5-5.1) 01/02/24 11:51 Chloride 106 mmol/L (98-107) 01/02/24 11:51 Carbon Dioxide 26 mmol/L (22-29) 01/02/24 11:51 Anion Gap 14.6 (5-19) 01/02/24 11:51 BUN 15 mg/dL (8-23) 01/02/24 11:51 Creatinine 0.7 mg/dL (0.7-1.2) 01/02/24 11:51 GFR Calculation 112.5 mL/min (90-130) 01/02/24 11:51 Glucose 94 mg/dL (65-115) 01/02/24 11:51 Calculated Osmolality 295 mOsm/kg (285-295) 01/02/24 11:51 Calcium 9.8 mg/dL (8.5-10.5) 01/02/24 11:51 Total Bilirubin 1.3 mg/dL (0.15-1.2) H 01/02/24 11:51 AST 22 U/L (0-40) 01/02/24 11:51 ALT 64 U/L (0-41) H 01/02/24 11:51 Alkaline Phosphatase 125 U/L (40-130) 01/02/24 11:51 Total Protein 7.0 g/dL (6.6-8.7) 01/02/24 11:51 Albumin 4.2 g/dL (3.5-5.2) 01/02/24 11:51 Globulin 2.8 g/dL (1.3-4.6) 01/02/24 11:51 Lipase 38 U/L (13-60) 01/02/24 11:51 Urine Color Yellow (Yellow) 01/02/24 13:45 Urine Appearance Clear (CLEAR) 01/02/24 13:45 Urine pH 6 (5-7) 01/02/24 13:45 Ur Specific [place] 1.015 (1.005-1.030) 01/02/24 13:45 Urine Protein Neg (Negative) 01/02/24 13:45 Urine Glucose (UA) Norm (Normal) 01/02/24 13:45 Urine Ketones 1+ (Negative) H 01/02/24 13:45 Urine Blood Neg (Negative) 01/02/24 13:45 Urine Nitrate Negative (Negative) 01/02/24 13:45 Urine Bilirubin Neg (Negative) 01/02/24 13:45 Urine Urobilinogen Norm mg/dL (Negative) 01/02/24 13:45 Ur Leukocyte Esterase Negative (Negative) 01/02/24 13:45 Urine RBC None /hpf (0-2) 01/02/24 13:45 Urine WBC Rare /hpf (0-5) 01/02/24 13:45 Ur Squamous Epith Cells None /hpf (0-5) 01/02/24 13:45 Amorphous Sediment Not Reportable 01/02/24 13:45 Urine Bacteria Trace /hpf (NONE) 01/02/24 13:45 Urine Mucus 1+ /hpf 01/02/24 13:45 All radiology interpretation(s) finalized by discharge Discharge Plan Discharge Patient Disposition: Home Clinical Impression: Abdominal pain, epigastric Gastritis Qualifiers: Gastritis type: unspecified gastritis Chronicity: unspecified Gastritis bleeding: without bleeding Qualified Code(s): K29.70 - Gastritis, unspecified, without bleeding Condition: Stable Prescriptions: New Carafate 1 gram tablet 1 g PO TID 28 Days Qty: 84 0RF ondansetron HCl 4 mg tablet 4 mg PO Q12H 5 Days Qty: 10 0RF No Action esomeprazole magnesium 40 mg capsule,delayed release(DR/EC) 40 mg PO DAILY trazodone 100 mg tablet 100 mg PO BEDTIME Qty: 30 4RF lisinopril 20 mg tablet 20 mg PO DAILY alprazolam 0.5 mg tablet 0.25 mg PO BID hydroxychloroquine 200 mg tablet 200 mg PO DAILY dicyclomine 10 mg capsule 10 mg PO TID PRN (Reason: Pain) celecoxib 400 mg capsule 400 mg PO DAILY ondansetron 4 mg tablet,disintegrating 4 mg PO Q8H PRN (Reason: Nausea And Vomiting) Discharge Orders: Discharge ED (Routine); Ordered 01/02/24 Ordered By: Jhoan Moore Referrals: Harinder Bragg MD [Primary Care Provider] - Discharge Diet: Usual diet Discharge Activity: Resume usual activity Patient Instructions: Abdominal Pain (ED), Opioid Safety, Pain Management Activity Restrictions/Additional Instructions: Activity Restrictions/Additional Instructions: Thank you for choosing [facility] for your healthcare needs today. Please realize that you were seen in the Emergency Department and that we are providing you with an emergency medical screening exam and this may not be a complete and all inclusive of all the testing and or medical work-up that you may need to determine your ailment or severity of your illness. It is very important that you follow-up as instructed with your Primary care provider or Specialist for additional evaluation and to discuss your medical treatment plan. You may return to the Emergency Department should you have concerns or if your condition changes or worsens in any way. Coding Level of Care Code ED Branch Associate Teller for Jesús Nicolas
[2024-01-02] MEDS: lidocaine 2% viscous 15 ML, aluminum-mag hydrox-simethicon 30 ML, sucralfate oral liq 1 GM PO (15:54)
[2024-01-02] MEDS: sucralfate 1 gm Tablet PO (15:57)
[2024-01-02 16:06] VITALS: BP 133/73; PULSE 59; O2SAT 96
== END 2024-01-02 16:08 | disposition home or self-care (01) ==
PROVIDERS: Emergency Provider Internal Medicine; PCP Internal Medicine
DX: K29.70 Gastritis, unspecified, without bleeding (principal); R10.13 Epigastric pain; I10 Essential (primary) hypertension; E78.5 Hyperlipidemia, unspecified
CPT/HCPCS: 36415; 74177; 80053; 81001; 83690; 85025; 99285; Q9967

== ENCOUNTER 2024-01-28 07:38 | Outpatient (CLI) | payer MEDICARE, SELFPAY ==
--- NOTE | 2024-01-28 07:49 | MR_ITS ---
WS: [id number] MRI/MRCP OF THE ABDOMEN WITHOUT GADOLINIUM ENHANCEMENT TECHNIQUE: Coronal T2 Fase BH, Axial T2 Fase BH, Axial T2 FS BH, Zxial 3D Stanley BH, Axial DWI BH, 2D MRCP Radial BH, 3D MRCP (Resp), and Axial 3D Dyn BH Post sequences. CLINICAL INFORMATION: POSTPRANDIAL BLOATING COMPARISON: CT abdomen pelvis to 02/20 and 02/17/2022. FINDINGS: Prior cholecystectomy. No evidence of fluid collection in the gallbladder fossa. Normal liver. Normal portal vein and splenic vein. Normal GE junction. Normal spleen. Portal vein and splenic vein are pa tent. Normal pancreatic parenchymal enhancement. Adrenal glands are normal. No hydronephrosis in eith er kidney. Normal caliber upper abdominal aorta. No evidence of choledocholithiasis. Normal common bi le duct. No pancreatic ductal dilatation. Impression: 1. Prior cholecystectomy. No evidence of fluid collection in the gallbladder fossa. 2. Normal common bile duct. No evidence of choledocholithiasis. 3. Normal pancreas. 4. No hydronephrosis in either kidney. 5. No other acute findings.
== END 2024-01-28 07:39 | disposition home or self-care (01) ==
LOC: RAD 07:38
PROVIDERS: PCP Internal Medicine; Visit Provider Internal Medicine
DX: R14.0 Abdominal distension (gaseous) (principal); Z90.49 Acquired absence of other specified parts of digestive tract
CPT/HCPCS: 74181

== ENCOUNTER 2024-06-23 09:29 | Outpatient (CLI) | payer MEDICARE, SELFPAY ==
[2024-06-23 10:53] LABS: Alanine Aminotransferase 16 U/L (0-41); Albumin Level 4.4 g/dL (3.5-5.2); Alkaline Phosphatase 61 U/L (40-130); Aspartate Amino Transferase 12 U/L (0-40); Globulin 2.5 g/dL (1.3-4.6); Total Bilirubin 0.8 mg/dL (0.15-1.2); Total Protein 6.9 g/dL (6.6-8.7)
== END 2024-06-23 09:30 | disposition home or self-care (01) ==
PROVIDERS: PCP Internal Medicine; Visit Provider Internal Medicine Gastroenterology
DX: R17 Unspecified jaundice (principal)
CPT/HCPCS: 36415; 80076